=== PATIENT | female | born 1990 | race Caucasian/White ===

== ENCOUNTER 2017-08-23 02:08 | Inpatient (IN) ==
[2017-08-23] MEDS ORDERED: 0.9 % Sodium Chloride 1,000 ML IVC ONE (02:17)
[2017-08-23] MEDS ORDERED: Naloxone 0.4 MG/ML INJ IVP ONE (02:17)
--- NOTE | 2017-08-23 02:28 | Emergency Department Note ---
Disposition Clinical Impression: Generalized seizure Disposition: Still a Patient General Adult HPI - General Chief complaint: ED Seizure Stated complaint: seizure like activity Source: patient, EMS Limitations: no limitations - History of Present Illness Pain Scale: 0 - Related Data Previous Rx's Medication Instructions Recorded Azithromycin [Zithromax] 1 applic PO DAILY #6 tablet 06/06/15 Ondansetron [Zofran ODT] 8 mg SL TID PRN #12 tab.rapdis 06/06/15 Promethazine/Codeine 5 ml PO TID PRN #90 syrup 06/06/15 [Phenergan/Codeine] Ciprofloxacin [Cipro] 500 mg PO BID #20 tablet 02/05/16 Ondansetron HCl [Zofran] 4 mg PO Q8HR PRN #15 tablet 02/05/16 OxyCODONE/APAP 5/325 [Percocet 1 each PO Q8HR PRN #8 tablet 11/05/16 5/325 MG] Sulfamethoxazole/Trimeth DS 1 each PO BID 10 Days tablet 06/08/17 [Bactrim DS] Allergies Allergy/AdvReac Type Severity Reaction Status Date / Time No Known Allergies Allergy Verified 06/08/17 04:15 Past Medical History - Past Medical History Medical history: Reports: other Surgical history: Reports: no surgical history Psychiatric history: Reports: anxiety, bipolar, depression 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 I agree with the documented findings, disposition and treatment plan as described except to the extent set forth below. Patient seen with emergency medicine resident Marquis Bey, Please see a copy of his note for details of the H&P, ED evaluation, management and disposition. I have independently evaluated the patient and confirmed appropriate portions of the history and physical exam. Briefly: 26-year-old female by EMS for seizure-like activity. Patient's boyfriend is with her. 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 Be tonic-clonic action upon arrival here she is a bit sleepy does not appear to be postictal at this time no pupillary constriction. Patient could be getting some Narcan screening labs imaging and observation. Disposition pending. Time: 02:27 Vital Signs Temperature 98.4 F 08/23/17 02:10 Pulse Rate 82 08/23/17 02:10 Respiratory Rate 16 08/23/17 02:10 Blood Pressure 131/93 08/23/17 02:10 O2 Sat by Pulse Oximetry 98 08/23/17 02:10 Temperature 98.4 F 08/23/17 02:10 Pulse Rate 82 08/23/17 02:10 Respiratory Rate 16 08/23/17 02:10 Blood Pressure 131/93 08/23/17 02:10 O2 Sat by Pulse Oximetry 98 08/23/17 02:10 Oxygen Delivery Oxygen Delivery Room Air
[2017-08-23] MEDS ORDERED: Naloxone 0.4 MG/ML INJ ONE (02:39)
[2017-08-23] MEDS ORDERED: 0.9 % Sodium Chloride 1,000 ML ONE (02:39)
[2017-08-23 02:41] LABS: Bilirubin,Urine Negative (Negative); Blood,Urine Negative (Negative); Clarity,Urine Cloudy (Clear); Color,Urine Yellow (Yellow); Glucose,Urine (UA) Normal (Normal); Ketones,Urine Negative (Negative); Leukocyte Esterase,Urine Moderate (Negative); Nitrite,Urine Positive (Negative); PH,Urine 5.5 pH Units (5.0-8.0); Protein,Urine Negative (Neg-Trace); Specific Gravity,Urine 1.028 (1.010-1.025); Urobilinogen,Urine Normal (Normal)
[2017-08-23 02:43] LABS: Bacteria,Urine Many per hpf (None-Few); RBC,Urine 0-3 per hpf (0-3); Squamous Epithelial Cell,Urine Many per lpf (None-Few); WBC,Urine 50-100 per hpf (0-3)
[2017-08-23 02:57] LABS: Hyaline Casts,Urine None Seen per lpf (None-Few); Mucus,Urine Many (Few)
[2017-08-23 03:04] LABS: Amphetamine Screen,Urine Positive ng/mL (Cutoff=1000); Barbiturate Screen,Urine Negative ng/mL (Cutoff=200); Benzodiazepines Screen,Urine Negative ng/mL (Cutoff=200); Cannabinoid Screen,Urine Positive ng/mL (Cutoff = 50); Cocaine Screen,Urine Negative ng/mL (Cutoff= 300); Opiate Screen,Urine Positive ng/mL (Cutoff=300); Phencyclidine Screen,Urine Negative ng/mL (Cutoff=25)
--- NOTE | 2017-08-23 03:38 | Emergency Department Note ---
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 Altered mental state Qualifiers: Altered mental status type: unspecified Qualified Code(s): R41.82 - Altered mental status, unspecified Anemia Qualifiers: Anemia type: other cause Other causes of anemia: other cause, not classified Qualified Code(s): D64.89 - Other specified anemias Disposition: Still a Patient Condition: Fair Referrals: NONE,PCP [Primary Care Provider] - Forms: ED Satisfaction Letter Time of Disposition: 06:50 General Adult HPI - General Chief complaint: ED Seizure Stated complaint: seizure like activity Time Seen by Provider: 08/23/17 03:00 Source: patient, EMS Limitations: no limitations Nursing Notes Reviewed: Yes Vital Signs Reviewed: Yes - History of Present Illness HPI Narrative: 26-year-old female brought in minimally responsive by EMS, she had been apparently using heroin or Suboxone, the patient was initially very quiet and she apparently wakes up and looks around and does not sleep, we have her some Narcan, she has been more awake alert now and gives a history that she was using Suboxone, the patient denies chest pain or abdominal pain, she states that she is , she is a history of ITP. She denies vaginal bleeding or discharge although she did have some bleeding and discharge a few weeks ago. 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 Denies: chest pain, cough, diaphoresis - Related Data Previous Rx's Medication Instructions Recorded Azithromycin [Zithromax] 1 applic PO DAILY #6 tablet 06/06/15 Ondansetron [Zofran ODT] 8 mg SL TID PRN #12 tab.rapdis 06/06/15 Promethazine/Codeine 5 ml PO TID PRN #90 syrup 06/06/15 [Phenergan/Codeine] Ciprofloxacin [Cipro] 500 mg PO BID #20 tablet 02/05/16 Ondansetron HCl [Zofran] 4 mg PO Q8HR PRN #15 tablet 02/05/16 OxyCODONE/APAP 5/325 [Percocet 1 each PO Q8HR PRN #8 tablet 11/05/16 5/325 MG] Sulfamethoxazole/Trimeth DS 1 each PO BID 10 Days tablet 06/08/17 [Bactrim DS] Allergies Allergy/AdvReac Type Severity Reaction Status Date / Time No Known Allergies Allergy Verified 06/08/17 04:15 All systems ED: reviewed and negative except as stated. Review of Systems: As Per HPI Limitations: ROS unobtainable due to patients medical condition (initially ROS is difficult but patient awake after narcan) Constitutional: Denies: fever, chills Eyes: Denies: eye pain ENT ED: Denies: ear pain Cardiovascular: Denies: chest pain Respiratory: Reports: cough, dyspnea Gastrointestinal: Denies: abdominal pain, nausea Genitourinary: Denies: urgency, dysuria Musculoskeletal: Denies: back pain Integumentary: Denies: rash Neurological: Denies: headache Psychiatric: Denies: anxiety Past Medical History - Past Medical History Attestation: Yes The following information was validated with the patient. 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 - Social History Smoking Status: Current every day smoker Smokeless Tobacco Status: No Alcohol use: Reports: rarely Drug use: Reports: opiates, marijuana Physical Exam Constitutional: Somnolent and confused, Eyes: PERRLA, sclera anicteric ENT & Mouth: MM dry Neck: normal inspection, neck is supple Resp: CTA bilaterally, no resp distress CV: Tachycardia no m/g/r GI: normal inspection, soft, no guarding or rigidity Neuro: A&O2, renal nerves II through XII intact bilaterally patient seems confused, GCS is 14 for confusion Skin: on limited exam, skin intact with no rashes or lesions - General Limitations: no limitations General appearance: lethargic Course Course Narrative: Patient's a 26-year-old female with ulcerative thousand confusion, concern for Suboxone, was given some Narcan and did have some response alterable statics workup chest x-ray head CT the mother's concern for medically indicated and a very low dose. Patient is likely an early first trimester secondary to the story from the squad. We will reassess after evaluation. - Reevaluation(s) Reevaluation #1: So patient's head CT is negative, she is hemoglobin of 7.5 but she denies any rectal bleeding and refuses rectal exam, she also states that she has not had vaginal bleeding or spotting but did have some a few weeks ago and she was seen at [facility] a few months ago for ITP and anemia, and she is having either platelet counts or he will be counts as low as 7, but she still very confused and disoriented historian, her cousins at bedside and she is able to calm her down, prior to the hemoglobin, the patient was attempting to leave AGAINST MEDICAL ADVICE, I did have several conversations with the patient was able to get the patient to stay at inability to clot possible pelvic ultrasound to look for ectopic she is completely nontender still abdominal exam at this time, however there is still the concern, patient be admitted added type and screen as well. Time: 04:53 Reevaluation #2: Patient's care will be followed by Dr. Wesley and Dr. Mtz, for further evaluation she is expressed several times that she may not have capacity right now, she has woken up and been confused multiple times as well, and the redirection, Francis do not think that she understands medical illness, she is anemic with a high concern for possible underlying pathology, the patient refused rectal exam when she was coherent, but there is a concern that she could have a ruptured ectopic although her abdomen is nontender, waiting for ultrasound and admission. Time: 06:35 Vital Signs Temperature 98.4 F 08/23/17 02:10 Pulse Rate 82 08/23/17 02:10 Respiratory Rate 16 08/23/17 02:10 Blood Pressure 131/93 08/23/17 02:10 O2 Sat by Pulse Oximetry 98 08/23/17 02:10 Temperature 98.4 F 08/23/17 02:10 Pulse Rate 73 08/23/17 05:31 Respiratory Rate 16 08/23/17 05:31 Blood Pressure 99/63 08/23/17 05:31 O2 Sat by Pulse Oximetry 100 08/23/17 05:31 Oxygen Delivery Oxygen Delivery Room Air Medical Decision Making - Medical Records Medical records reviewed: Yes I reviewed the patient's medical records. - Lab Data Lab results reviewed: Yes I reviewed the patient's lab results. Result diagrams: 08/23/17 03:20 08/23/17 03:20 Lab Results 08/23/17 08/23/17 08/23/17 Range/Units 02:25 02:25 02:25 WBC (4.3-11.1) K/mcL RBC (3.82-4.97) M/mcL Hgb (11.5-15.4) g/dL Hct (35.3-44.9) % MCV (83.0-100.0) fL MCH (28.0-33.3) pg MCHC (31.6-35.5) g/dL RDW (11.5-14.5) % Plt Count (140-400) K/mcL MPV (9.4-12.4) fL Immature Gran % (0-4) % Seg Neutrophils % % Lymphocytes % % Monocytes % % Eosinophils % % Basophils % % Neutrophils # (1.6-8.9) K/mcL Lymphocytes # (0.6-4.6) K/mcL Monocytes # (0.0-1.3) K/mcL Eosinophils # (0.0-0.6) K/mcL Basophils # (0.0-0.2) K/mcL Platelet Estimate (Normal) Hypochromasia (Not Present) Anisocytosis (Not Present) Microcytosis (Not Present) Sodium (136-145) mEq/L Potassium (3.5-5.1) mEq/L Chloride (98-107) mEq/L Carbon Dioxide (23-29) mEq/L BUN (6-20) mg/dL Creatinine (0.60-1.20) mg/dL Est GFR ( Amer) (> 60) Est GFR (Non-Af Amer) (> 60) BUN/Creatinine Ratio (6-26) Glucose (70-105) mg/dL Calculated Osmolality (280-300) Calcium (8.6-10.3) mg/dL Total Bilirubin (0.3-1.0) mg/dL Direct Bilirubin (0.0-0.2) mg/dL Indirect Bilirubin (0.0-1.2) mg/dL AST (13-39) Units/L ALT (7-52) Units/L Alkaline Phosphatase (34-104) Units/L Creatine Kinase (30-223) Units/L Troponin I (< 0.04) ng/mL Serum Total Protein (6.4-8.9) g/dL Albumin (3.5-5.7) g/dL Globulin (2.4-3.5) g/dL Albumin/Globulin Ratio (1.1-2.2) TSH (0.340-5.600) mcIU/mL Beta HCG, Quant (Less than 5) mIU/mL Urine Color Yellow (Yellow) Urine Clarity Cloudy A (Clear) Urine pH 5.5 (5.0-8.0) pH Units Ur Specific [place] 1.028 H (1.010-1.025) Urine Protein Negative (Neg-Trace) mg/dL Urine Glucose (UA) Normal (Normal) mg/dL Urine Ketones Negative (Negative) mg/dL Urine Blood Negative (Negative) Urine Nitrite Positive A (Negative) Urine Bilirubin Negative (Negative) Urine Urobilinogen Normal (Normal) mg/dL Ur Leukocyte Esterase Moderate H (Negative) Urine Microscopic RBC 0-3 (0-3) per hpf Urine Microscopic WBC 50-100 H (0-3) per hpf Ur Squamous Epith Cells Many H (None-Few) per lpf Urine Bacteria Many H (None-Few) per hpf Hyaline Casts None Seen (None-Few) per lpf Urine Mucus Many H (Few) Ur Culture Indicated? NO. A (NO) Urine Test Positive A (Negative) Urine Opiates Screen Positive H (Ygnnnz=108) ng/mL Ur Barbiturates Screen Negative (Sjlpwp=103) ng/mL Ur Phencyclidine Scrn Negative (Cutoff=25) ng/mL Ur Amphetamines Screen Positive H (Kztliy=3379) ng/mL U Benzodiazepines Scrn Negative (Qjlfwx=495) ng/mL Urine Cocaine Screen Negative (Cutoff= 300) ng/mL U Marijuana (THC) Screen Positive H (Cutoff = 50) ng/mL Ethyl Alcohol (Less than 10) mg/dL Blood Type Antibody Screen 08/23/17 08/23/17 08/23/17 Range/Units 03:20 03:20 03:20 WBC 8.1 (4.3-11.1) K/mcL RBC 3.78 L (3.82-4.97) M/mcL Hgb 7.5 L (11.5-15.4) g/dL Hct 25.9 L (35.3-44.9) % MCV 68.5 L (83.0-100.0) fL MCH 19.8 L (28.0-33.3) pg MCHC 29.0 L (31.6-35.5) g/dL RDW 19.3 H (11.5-14.5) % Plt Count 331 (140-400) K/mcL MPV 9.6 (9.4-12.4) fL Immature Gran % 0.2 (0-4) % Seg Neutrophils % 56.0 % Lymphocytes % 36.2 % Monocytes % 6.3 % Eosinophils % 0.9 % Basophils % 0.4 % Neutrophils # 4.5 (1.6-8.9) K/mcL Lymphocytes # 2.9 (0.6-4.6) K/mcL Monocytes # 0.5 (0.0-1.3) K/mcL Eosinophils # 0.1 (0.0-0.6) K/mcL Basophils # 0.0 (0.0-0.2) K/mcL Platelet Estimate Normal (Normal) Hypochromasia Present A (Not Present) Anisocytosis 1+ A (Not Present) Microcytosis Present A (Not Present) Sodium 137 (136-145) mEq/L Potassium 3.5 (3.5-5.1) mEq/L Chloride 108 H (98-107) mEq/L Carbon Dioxide 23 (23-29) mEq/L BUN 13 (6-20) mg/dL Creatinine 0.74 (0.60-1.20) mg/dL Est GFR ( Amer) > 60 (> 60) Est GFR (Non-Af Amer) > 60 (> 60) BUN/Creatinine Ratio 18 (6-26) Glucose 97 (70-105) mg/dL Calculated Osmolality 284 (280-300) Calcium 8.7 (8.6-10.3) mg/dL Total Bilirubin 0.3 (0.3-1.0) mg/dL Direct Bilirubin 0.1 (0.0-0.2) mg/dL Indirect Bilirubin 0.2 (0.0-1.2) mg/dL AST 32 (13-39) Units/L ALT 37 (7-52) Units/L Alkaline Phosphatase 73 (34-104) Units/L Creatine Kinase 215 (30-223) Units/L Troponin I < 0.03 (< 0.04) ng/mL Serum Total Protein 7.1 (6.4-8.9) g/dL Albumin 4.0 (3.5-5.7) g/dL Globulin 3.1 (2.4-3.5) g/dL Albumin/Globulin Ratio 1.3 (1.1-2.2) TSH 2.210 (0.340-5.600) mcIU/mL Beta HCG, Quant 627 H (Less than 5) mIU/mL Urine Color (Yellow) Urine Clarity (Clear) Urine pH (5.0-8.0) pH Units Ur Specific [place] (1.010-1.025) Urine Protein (Neg-Trace) mg/dL Urine Glucose (UA) (Normal) mg/dL Urine Ketones (Negative) mg/dL Urine Blood (Negative) Urine Nitrite (Negative) Urine Bilirubin (Negative) Urine Urobilinogen (Normal) mg/dL Ur Leukocyte Esterase (Negative) Urine Microscopic RBC (0-3) per hpf Urine Microscopic WBC (0-3) per hpf Ur Squamous Epith Cells (None-Few) per lpf Urine Bacteria (None-Few) per hpf Hyaline Casts (None-Few) per lpf Urine Mucus (Few) Ur Culture Indicated? (NO) Urine Test (Negative) Urine Opiates Screen (Qhbbuw=494) ng/mL Ur Barbiturates Screen (Amnhju=752) ng/mL Ur Phencyclidine Scrn (Cutoff=25) ng/mL Ur Amphetamines Screen (Wqgwco=1133) ng/mL U Benzodiazepines Scrn ([place]=250) ng/mL Urine Cocaine Screen (Cutoff= 300) ng/mL U Marijuana (THC) Screen (Cutoff = 50) ng/mL Ethyl Alcohol < 10 (Less than 10) mg/dL Blood Type Antibody Screen 08/23/17 Range/Units 03:20 WBC (4.3-11.1) K/mcL RBC (3.82-4.97) M/mcL Hgb (11.5-15.4) g/dL Hct (35.3-44.9) % MCV (83.0-100.0) fL MCH (28.0-33.3) pg MCHC (31.6-35.5) g/dL RDW (11.5-14.5) % Plt Count (140-400) K/mcL MPV (9.4-12.4) fL Immature Gran % (0-4) % Seg Neutrophils % % Lymphocytes % % Monocytes % % Eosinophils % % Basophils % % Neutrophils # (1.6-8.9) K/mcL Lymphocytes # (0.6-4.6) K/mcL Monocytes # (0.0-1.3) K/mcL Eosinophils # (0.0-0.6) K/mcL Basophils # (0.0-0.2) K/mcL Platelet Estimate (Normal) Hypochromasia (Not Present) Anisocytosis (Not Present) Microcytosis (Not Present) Sodium (136-145) mEq/L Potassium (3.5-5.1) mEq/L Chloride (98-107) mEq/L Carbon Dioxide (23-29) mEq/L BUN (6-20) mg/dL Creatinine (0.60-1.20) mg/dL Est GFR ( Amer) (> 60) Est GFR (Non-Af Amer) (> 60) BUN/Creatinine Ratio (6-26) Glucose (70-105) mg/dL Calculated Osmolality (280-300) Calcium (8.6-10.3) mg/dL Total Bilirubin (0.3-1.0) mg/dL Direct Bilirubin (0.0-0.2) mg/dL Indirect Bilirubin (0.0-1.2) mg/dL AST (13-39) Units/L ALT (7-52) Units/L Alkaline Phosphatase (34-104) Units/L Creatine Kinase (30-223) Units/L Troponin I (< 0.04) ng/mL Serum Total Protein (6.4-8.9) g/dL Albumin (3.5-5.7) g/dL Globulin (2.4-3.5) g/dL Albumin/Globulin Ratio (1.1-2.2) TSH (0.340-5.600) mcIU/mL Beta HCG, Quant (Less than 5) mIU/mL Urine Color (Yellow) Urine Clarity (Clear) Urine pH (5.0-8.0) pH Units Ur Specific [place] (1.010-1.025) Urine Protein (Neg-Trace) mg/dL Urine Glucose (UA) (Normal) mg/dL Urine Ketones (Negative) mg/dL Urine Blood (Negative) Urine Nitrite (Negative) Urine Bilirubin (Negative) Urine Urobilinogen (Normal) mg/dL Ur Leukocyte Esterase (Negative) Urine Microscopic RBC (0-3) per hpf Urine Microscopic WBC (0-3) per hpf Ur Squamous Epith Cells (None-Few) per lpf Urine Bacteria (None-Few) per hpf Hyaline Casts (None-Few) per lpf Urine Mucus (Few) Ur Culture Indicated? (NO) Urine Test (Negative) Urine Opiates Screen (Gnlekt=748) ng/mL Ur Barbiturates Screen (Khwyci=736) ng/mL Ur Phencyclidine Scrn (Cutoff=25) ng/mL Ur Amphetamines Screen (Kadkhq=3580) ng/mL U Benzodiazepines Scrn (Zwsjfd=429) ng/mL Urine Cocaine Screen (Cutoff= 300) ng/mL U Marijuana (THC) Screen (Cutoff = 50) ng/mL Ethyl Alcohol (Less than 10) mg/dL Blood Type B POSITIVE Antibody Screen NEGATIVE - Radiology Data Radiology results reviewed: Yes I reviewed the patient's radiology results. Chest X-Ray 08/23/17 02:18 IMPRESSION: Negative portable chest. D/ / Kelby Adam MD / Kelby Adam MD Interpreting Provider: Kelby Adam MD Head CT 08/23/17 02:18 IMPRESSION: No acute intracranial abnormality. D/ / Stephen Astorga MD / Stephen Astorga MD Interpreting Provider: Stephen Astorga MD - EKG Data EKG #1 EKG attestation: Yes I reviewed and interpreted this EKG. EKG shows normal: sinus rhythm Rhythm: NSR [place]/QRS: normal (74 bpm [place] 177 QRS [address] segment elevations or depressions.) Voltage: increased voltage throughout Interpretation: no acute changes S.B.A.R. - S.B.A.R. Transition of Care: Pending ultrasound admission Situation: Demographics, MOA Background: Presenting Complaint, Relevant PMH, Meds, & Allergies Assessment: Vital Signs, Course and respsone to treatment, Exam Concerns, Patient/Family Expectation, Pertinant Lab Results, Outstanding Labs Recommendation: Barrier(s) to disposition, Recommendation based on pending studies, treatments, or consults S.B.A.R. Report Given to: Smith Shi Repor Time: 06:33
[2017-08-23 03:39] LABS: Basophils % 0.4 %; Eosinophils # 0.1 K/mcL (0.0-0.6); Eosinophils % 0.9 %; Hematocrit 25.9 % (35.3-44.9); Hemoglobin 7.5 g/dL (11.5-15.4); Immature Granulocytes % 0.2 % (0-4); Lymphocytes # 2.9 K/mcL (0.6-4.6); Lymphocytes % 36.2 %; Mean Corpuscular Hemoglobin 19.8 pg (28.0-33.3); Mean Corpuscular Volume 68.5 fL (83.0-100.0); Mean Platelet Volume 9.6 fL (9.4-12.4); Monocytes # 0.5 K/mcL (0.0-1.3); Monocytes % 6.3 %; Neutrophils # 4.5 K/mcL (1.6-8.9); Platelet Count 331 K/mcL (140-400); Red Blood Count 3.78 M/mcL (3.82-4.97); Red Cell Distribution Width 19.3 % (11.5-14.5)
[2017-08-23 04:01] LABS: Anisocytosis 1+ (Not Present); Hypochromasia Present (Not Present); Microcytosis Present (Not Present); Platelet Estimate Normal (Normal)
[2017-08-23 04:02] LABS: Alanine Aminotransferase 37 Units/L (7-52); Albumin/Globulin Ratio 1.3 (1.1-2.2); Alkaline Phosphatase 73 Units/L (34-104); Aspartate Amino Transferase 32 Units/L (13-39); BUN/Creatinine Ratio 18 (6-26); Bilirubin,Direct 0.1 mg/dL (0.0-0.2); Bilirubin,Indirect 0.2 mg/dL (0.0-1.2); Bilirubin,Total 0.3 mg/dL (0.3-1.0); Blood Urea Nitrogen 13 mg/dL (6-20); Calcium 8.7 mg/dL (8.6-10.3); Carbon Dioxide 23 mEq/L (23-29); Chloride 108 mEq/L (98-107); Ethanol < 10 mg/dL (Less than 10); Globulin 3.1 g/dL (2.4-3.5); Glucose 97 mg/dL (70-105); Osmolality,Calculated 284 (280-300); Potassium 3.5 mEq/L (3.5-5.1); Sodium 137 mEq/L (136-145); Total Protein 7.1 g/dL (6.4-8.9); Troponin I < 0.03 ng/mL (< 0.04); eGFR For African Americans > 60 (> 60); eGFR For Non-African Americans > 60 (> 60)
[2017-08-23] MEDS ORDERED: Nicotine 14 MG PATCH.TD24 TD STA (04:14)
[2017-08-23] MEDS ORDERED: *HR* LORazepam 2 MG/ML VIAL IVP ONE (04:23)
--- NOTE | 2017-08-23 06:24 | Electrocardiograph Report ---
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
[2017-08-23] MEDS ORDERED: cefTRIAXone 1,000 MG in Water for inj. (sterile) 20 ML 10 ML IVP ONE (07:48)
--- NOTE | 2017-08-23 08:00 | Emergency Department Note ---
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, Opiate abuse, continuous Altered mental state Qualifiers: Altered mental status type: unspecified Qualified Code(s): R41.82 - Altered mental status, unspecified Anemia Qualifiers: Anemia type: other cause Other causes of anemia: other cause, not classified Qualified Code(s): D64.89 - Other specified anemias Disposition: Admitted As Inpatient Condition: Undetermined Referrals: NONE,PCP [Primary Care Provider] - Forms: ED Satisfaction Letter Time of Disposition: 08:37 General Adult HPI - General Chief complaint: ED Seizure Stated complaint: seizure like activity Time Seen by Provider: 08/23/17 03:00 Source: patient, EMS Mode of arrival: EMS Limitations: altered mental status Nursing Notes Reviewed: Yes Vital Signs Reviewed: Yes - History of Present Illness HPI Narrative: The patient was signed out by the night team, Dr. Bey. In summary, this is a 26 year old female with history of multiple pregnancies, IVDU, and ITP. She arrives to the ED with concern for Altered mental status. The patient was reported to have used some sort of opiate prior to arrival. The patient arrives to the ED somnolent but was arousable. The patient was administered narcan which in turn woke the patient up slightly. She admitted to suboxone use. The patient had labs obtained at that time as she remained sleepy. The patient's labs noted anemia and when questioned the patient was noted to have previously been diagnosed with ITP at [facility]. The patient records from [facility] were obtained from visit around 07/03/17. Noted to be anemic at that time. The patient denies any complaints at this time. Ultrasound was ordered to observe for any abnormalities with the adnexa/. The patient has a soft abdomen and no complaints of vaginal bleeding or discharge. The patient refused an transvaginal US but is willing to obtain a transabdominal US. The patient remains somnolent but again, is easily arousable and protecting her airway. No complaints at this time. Location: head Pain Scale: 0 Improves with: nothing Worsens with: nothing Associated symptoms: Reports: confusion. Denies: chest pain, cough, diaphoresis - Related Data Previous Rx's Medication Instructions Recorded Azithromycin [Zithromax] 1 applic PO DAILY #6 tablet 06/06/15 Ondansetron [Zofran ODT] 8 mg SL TID PRN #12 tab.rapdis 06/06/15 Promethazine/Codeine 5 ml PO TID PRN #90 syrup 06/06/15 [Phenergan/Codeine] Ciprofloxacin [Cipro] 500 mg PO BID #20 tablet 02/05/16 Ondansetron HCl [Zofran] 4 mg PO Q8HR PRN #15 tablet 02/05/16 OxyCODONE/APAP 5/325 [Percocet 1 each PO Q8HR PRN #8 tablet 11/05/16 5/325 MG] Sulfamethoxazole/Trimeth DS 1 each PO BID 10 Days tablet 06/08/17 [Bactrim DS] Allergies Allergy/AdvReac Type Severity Reaction Status Date / Time No Known Allergies Allergy Verified 06/08/17 04:15 All systems ED: reviewed and negative except as stated. Constitutional: Denies: fever, chills Eyes: Denies: eye pain ENT ED: Denies: ear pain Cardiovascular: Denies: chest pain Respiratory: Reports: cough, dyspnea Gastrointestinal: Denies: abdominal pain, nausea Genitourinary: Denies: urgency, dysuria Musculoskeletal: Denies: back pain Integumentary: Denies: rash Neurological: Denies: headache Psychiatric: Denies: anxiety Past Medical History - Past Medical History Source: old records reviewed, nursing notes reviewed Medical history: Reports: other Surgical history: Reports: no surgical history Psychiatric history: Reports: anxiety, bipolar, depression HOSPITAL AIDE history: Reports: non-contributory LMP comments: - Social History Smoking Status: Current every day smoker Smokeless Tobacco Status: No Alcohol use: Reports: rarely Drug use: Reports: opiates, marijuana, methamphetamine Physical Exam - General Limitations: no limitations General appearance: lethargic - Head Head exam: atraumatic, normocephalic, normal inspection - Eye Eye exam: Present: PERRL, EOMI, miosis - ENT ENT exam: normal exam, normal oropharynx, mucous membranes moist - Neck Neck exam: Present: normal inspection, full ROM, trachea midline - Chest Chest inspection: Present: normal inspection, symmetric chest wall rise - Respiratory Respiratory exam: Present: normal lung sounds bilaterally - Cardiovascular Cardiovascular exam: Present: regular rate, normal rhythm, normal heart sounds - Abdominal Exam Abdominal exam: Present: soft, Non-Tender. Absent: tenderness, distention, guarding, rebound, rigidity, heel tap sign, Ovalle's sign, Rovsing's sign, tenderness at McBurney's Point - Extremities Exam Extremities exam: Present: normal inspection, full ROM. Absent: tenderness, pedal edema - Expanded Neurological Exam Patient oriented to: Present: person, place Speech: Present: fluid speech Cranial nerves: EOM function (II, III, IV, ): Normal, facial sensation (V): Normal, facial palsy (VII): Normal Coma Scale Eye Opening: To Voice Coma Scale Motor Response: Obeys Commands Coma Scale Verbal Response: Confused Coma Scale Total: 13 - Skin Skin exam: Present: warm, dry, intact, normal color, other (Patient has mild induration and forming abscess to right shoulder and right abdomen. No crepitus , lesions, other discoloration to sites. No drainable abscess noted at this time.) Course Vital Signs Temperature 98.4 F 08/23/17 02:10 Pulse Rate 82 08/23/17 02:10 Respiratory Rate 16 08/23/17 02:10 Blood Pressure 131/93 08/23/17 02:10 O2 Sat by Pulse Oximetry 98 08/23/17 02:10 Temperature 98.4 F 08/23/17 02:10 Pulse Rate 71 08/23/17 07:43 Respiratory Rate 18 08/23/17 07:43 Blood Pressure 100/77 08/23/17 07:43 O2 Sat by Pulse Oximetry 99 08/23/17 07:43 Oxygen Delivery Oxygen Delivery Room Air Medical Decision Making - [facility] Narrative Medical decision making narrative: Patient's ultrasound revealed a cystlike structure within the uterus likely early gestation . Given the patient's early gestation age without any overt obvious intrauterine noted on ultrasound, this will likely need to be repeated. The patient's abdominal exam is otherwise benign. Patient is otherwise well-appearing. The patient does have a couple non- drainable abscesses on the right shoulder and right abdomen. She was started on clindamycin. Urinary tract infection noted on urinalysis and was given a gram or Rocephin. The patient will be admitted to the hospital for observation and continued treatment. Patient was accepted by Dr. Keenan. - Lab Data Lab results reviewed: Yes I reviewed the patient's lab results. Result diagrams: 08/23/17 03:20 08/23/17 03:20 Lab Results 08/23/17 08/23/17 08/23/17 Range/Units 02:25 02:25 02:25 WBC (4.3-11.1) K/mcL RBC (3.82-4.97) M/mcL Hgb (11.5-15.4) g/dL Hct (35.3-44.9) % MCV (83.0-100.0) fL MCH (28.0-33.3) pg MCHC (31.6-35.5) g/dL RDW (11.5-14.5) % Plt Count (140-400) K/mcL MPV (9.4-12.4) fL Immature Gran % (0-4) % Seg Neutrophils % % Lymphocytes % % Monocytes % % Eosinophils % % Basophils % % Neutrophils # (1.6-8.9) K/mcL Lymphocytes # (0.6-4.6) K/mcL Monocytes # (0.0-1.3) K/mcL Eosinophils # (0.0-0.6) K/mcL Basophils # (0.0-0.2) K/mcL Platelet Estimate (Normal) Hypochromasia (Not Present) Anisocytosis (Not Present) Microcytosis (Not Present) Sodium (136-145) mEq/L Potassium (3.5-5.1) mEq/L Chloride (98-107) mEq/L Carbon Dioxide (23-29) mEq/L BUN (6-20) mg/dL Creatinine (0.60-1.20) mg/dL Est GFR ( Amer) (> 60) Est GFR (Non-Af Amer) (> 60) BUN/Creatinine Ratio (6-26) Glucose (70-105) mg/dL Calculated Osmolality (280-300) Calcium (8.6-10.3) mg/dL Total Bilirubin (0.3-1.0) mg/dL Direct Bilirubin (0.0-0.2) mg/dL Indirect Bilirubin (0.0-1.2) mg/dL AST (13-39) Units/L ALT (7-52) Units/L Alkaline Phosphatase (34-104) Units/L Creatine Kinase (30-223) Units/L Troponin I (< 0.04) ng/mL Serum Total Protein (6.4-8.9) g/dL Albumin (3.5-5.7) g/dL Globulin (2.4-3.5) g/dL Albumin/Globulin Ratio (1.1-2.2) TSH (0.340-5.600) mcIU/mL Beta HCG, Quant (Less than 5) mIU/mL Urine Color Yellow (Yellow) Urine Clarity Cloudy A (Clear) Urine pH 5.5 (5.0-8.0) pH Units Ur Specific Brooks 1.028 H (1.010-1.025) Urine Protein Negative (Neg-Trace) mg/dL Urine Glucose (UA) Normal (Normal) mg/dL Urine Ketones Negative (Negative) mg/dL Urine Blood Negative (Negative) Urine Nitrite Positive A (Negative) Urine Bilirubin Negative (Negative) Urine Urobilinogen Normal (Normal) mg/dL Ur Leukocyte Esterase Moderate H (Negative) Urine Microscopic RBC 0-3 (0-3) per hpf Urine Microscopic WBC 50-100 H (0-3) per hpf Ur Squamous Epith Cells Many H (None-Few) per lpf Urine Bacteria Many H (None-Few) per hpf Hyaline Casts None Seen (None-Few) per lpf Urine Mucus Many H (Few) Ur Culture Indicated? NO. A (NO) Urine Test Positive A (Negative) Urine Opiates Screen Positive H (Pabayb=122) ng/mL Ur Barbiturates Screen Negative (Bgtqei=291) ng/mL Ur Phencyclidine Scrn Negative (Cutoff=25) ng/mL Ur Amphetamines Screen Positive H (Zyyawr=3389) ng/mL U Benzodiazepines Scrn Negative (Rttrkv=159) ng/mL Urine Cocaine Screen Negative (Cutoff= 300) ng/mL U Marijuana (THC) Screen Positive H (Cutoff = 50) ng/mL Ethyl Alcohol (Less than 10) mg/dL Blood Type Antibody Screen 08/23/17 08/23/17 08/23/17 Range/Units 03:20 03:20 03:20 WBC 8.1 (4.3-11.1) K/mcL RBC 3.78 L (3.82-4.97) M/mcL Hgb 7.5 L (11.5-15.4) g/dL Hct 25.9 L (35.3-44.9) % MCV 68.5 L (83.0-100.0) fL MCH 19.8 L (28.0-33.3) pg MCHC 29.0 L (31.6-35.5) g/dL RDW 19.3 H (11.5-14.5) % Plt Count 331 (140-400) K/mcL MPV 9.6 (9.4-12.4) fL Immature Gran % 0.2 (0-4) % Seg Neutrophils % 56.0 % Lymphocytes % 36.2 % Monocytes % 6.3 % Eosinophils % 0.9 % Basophils % 0.4 % Neutrophils # 4.5 (1.6-8.9) K/mcL Lymphocytes # 2.9 (0.6-4.6) K/mcL Monocytes # 0.5 (0.0-1.3) K/mcL Eosinophils # 0.1 (0.0-0.6) K/mcL Basophils # 0.0 (0.0-0.2) K/mcL Platelet Estimate Normal (Normal) Hypochromasia Present A (Not Present) Anisocytosis 1+ A (Not Present) Microcytosis Present A (Not Present) Sodium 137 (136-145) mEq/L Potassium 3.5 (3.5-5.1) mEq/L Chloride 108 H (98-107) mEq/L Carbon Dioxide 23 (23-29) mEq/L BUN 13 (6-20) mg/dL Creatinine 0.74 (0.60-1.20) mg/dL Est GFR ( Amer) > 60 (> 60) Est GFR (Non-Af Amer) > 60 (> 60) BUN/Creatinine Ratio 18 (6-26) Glucose 97 (70-105) mg/dL Calculated Osmolality 284 (280-300) Calcium 8.7 (8.6-10.3) mg/dL Total Bilirubin 0.3 (0.3-1.0) mg/dL Direct Bilirubin 0.1 (0.0-0.2) mg/dL Indirect Bilirubin 0.2 (0.0-1.2) mg/dL AST 32 (13-39) Units/L ALT 37 (7-52) Units/L Alkaline Phosphatase 73 (34-104) Units/L Creatine Kinase 215 (30-223) Units/L Troponin I < 0.03 (< 0.04) ng/mL Serum Total Protein 7.1 (6.4-8.9) g/dL Albumin 4.0 (3.5-5.7) g/dL Globulin 3.1 (2.4-3.5) g/dL Albumin/Globulin Ratio 1.3 (1.1-2.2) TSH 2.210 (0.340-5.600) mcIU/mL Beta HCG, Quant 627 H (Less than 5) mIU/mL Urine Color (Yellow) Urine Clarity (Clear) Urine pH (5.0-8.0) pH Units Ur Specific Brooks (1.010-1.025) Urine Protein (Neg-Trace) mg/dL Urine Glucose (UA) (Normal) mg/dL Urine Ketones (Negative) mg/dL Urine Blood (Negative) Urine Nitrite (Negative) Urine Bilirubin (Negative) Urine Urobilinogen (Normal) mg/dL Ur Leukocyte Esterase (Negative) Urine Microscopic RBC (0-3) per hpf Urine Microscopic WBC (0-3) per hpf Ur Squamous Epith Cells (None-Few) per lpf Urine Bacteria (None-Few) per hpf Hyaline Casts (None-Few) per lpf Urine Mucus (Few) Ur Culture Indicated? (NO) Urine Test (Negative) Urine Opiates Screen (Qyjzne=886) ng/mL Ur Barbiturates Screen (Xzmlfm=090) ng/mL Ur Phencyclidine Scrn (Cutoff=25) ng/mL Ur Amphetamines Screen (Igzshq=6980) ng/mL U Benzodiazepines Scrn (Rdikrk=349) ng/mL Urine Cocaine Screen (Cutoff= 300) ng/mL U Marijuana (THC) Screen (Cutoff = 50) ng/mL Ethyl Alcohol < 10 (Less than 10) mg/dL Blood Type Antibody Screen 08/23/17 Range/Units 03:20 WBC (4.3-11.1) K/mcL RBC (3.82-4.97) M/mcL Hgb (11.5-15.4) g/dL Hct (35.3-44.9) % MCV (83.0-100.0) fL MCH (28.0-33.3) pg MCHC (31.6-35.5) g/dL RDW (11.5-14.5) % Plt Count (140-400) K/mcL MPV (9.4-12.4) fL Immature Gran % (0-4) % Seg Neutrophils % % Lymphocytes % % Monocytes % % Eosinophils % % Basophils % % Neutrophils # (1.6-8.9) K/mcL Lymphocytes # (0.6-4.6) K/mcL Monocytes # (0.0-1.3) K/mcL Eosinophils # (0.0-0.6) K/mcL Basophils # (0.0-0.2) K/mcL Platelet Estimate (Normal) Hypochromasia (Not Present) Anisocytosis (Not Present) Microcytosis (Not Present) Sodium (136-145) mEq/L Potassium (3.5-5.1) mEq/L Chloride (98-107) mEq/L Carbon Dioxide (23-29) mEq/L BUN (6-20) mg/dL Creatinine (0.60-1.20) mg/dL Est GFR ( Amer) (> 60) Est GFR (Non-Af Amer) (> 60) BUN/Creatinine Ratio (6-26) Glucose (70-105) mg/dL Calculated Osmolality (280-300) Calcium (8.6-10.3) mg/dL Total Bilirubin (0.3-1.0) mg/dL Direct Bilirubin (0.0-0.2) mg/dL Indirect Bilirubin (0.0-1.2) mg/dL AST (13-39) Units/L ALT (7-52) Units/L Alkaline Phosphatase (34-104) Units/L Creatine Kinase (30-223) Units/L Troponin I (< 0.04) ng/mL Serum Total Protein (6.4-8.9) g/dL Albumin (3.5-5.7) g/dL Globulin (2.4-3.5) g/dL Albumin/Globulin Ratio (1.1-2.2) TSH (0.340-5.600) mcIU/mL Beta HCG, Quant (Less than 5) mIU/mL Urine Color (Yellow) Urine Clarity (Clear) Urine pH (5.0-8.0) pH Units Ur Specific Brooks (1.010-1.025) Urine Protein (Neg-Trace) mg/dL Urine Glucose (UA) (Normal) mg/dL Urine Ketones (Negative) mg/dL Urine Blood (Negative) Urine Nitrite (Negative) Urine Bilirubin (Negative) Urine Urobilinogen (Normal) mg/dL Ur Leukocyte Esterase (Negative) Urine Microscopic RBC (0-3) per hpf Urine Microscopic WBC (0-3) per hpf Ur Squamous Epith Cells (None-Few) per lpf Urine Bacteria (None-Few) per hpf Hyaline Casts (None-Few) per lpf Urine Mucus (Few) Ur Culture Indicated? (NO) Urine Test (Negative) Urine Opiates Screen (Tldilc=013) ng/mL Ur Barbiturates Screen (Swcvag=584) ng/mL Ur Phencyclidine Scrn (Cutoff=25) ng/mL Ur Amphetamines Screen (Yzgcsu=1557) ng/mL U Benzodiazepines Scrn (Ujntud=538) ng/mL Urine Cocaine Screen (Cutoff= 300) ng/mL U Marijuana (THC) Screen (Cutoff = 50) ng/mL Ethyl Alcohol (Less than 10) mg/dL Blood Type B POSITIVE Antibody Screen NEGATIVE - Radiology Data Radiology results reviewed: Yes I reviewed the patient's radiology results. Chest X-Ray 08/23/17 02:18 IMPRESSION: Negative portable chest. D/ / Kelby Adam MD / Kelby Adam MD Interpreting Provider: Kelby Adam MD Head CT 08/23/17 02:18 IMPRESSION: No acute intracranial abnormality. D/ / Stephen Astorga MD / Stephen Astorga MD Interpreting Provider: Stephen Astorga MD Obstetrics Ultrasound 08/23/17 05:23 IMPRESSION: 1. Small cystic structure in the uterus, which may be an early gestational sac. No yolk sac or pole is present at this time to confirm an intrauterine , and therefore, an ectopic or missed cannot be excluded. Continued beta HCG and pelvic ultrasound follow-up is recommended. 2. Masslike lesion in the urinary bladder, which measures up to 4.1 cm. Given the patient's age, this is likely secondary to debris or blood within the bladder. However, malignancy cannot be excluded. Either a repeat bladder ultrasound, or further evaluation with cystoscopy is recommended. D/ / Anupam Felder MD / Anupam Felder MD Interpreting Provider: Anupam Felder MD
--- NOTE | 2017-08-23 08:29 | Emergency Department Note ---
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, Opiate abuse, continuous Altered mental state Qualifiers: Altered mental status type: unspecified Qualified Code(s): R41.82 - Altered mental status, unspecified Anemia Qualifiers: Anemia type: other cause Other causes of anemia: other cause, not classified Qualified Code(s): D64.89 - Other specified anemias Disposition: Admitted As Inpatient Condition: Undetermined Referrals: NONE,PCP [Primary Care Provider] - Forms: ED Satisfaction Letter General Adult HPI - General Chief complaint: ED Seizure Stated complaint: seizure like activity Time Seen by Provider: 08/23/17 03:00 Source: patient, EMS Mode of arrival: EMS Limitations: no limitations - History of Present Illness Location: head Pain Scale: 0 Improves with: nothing Worsens with: nothing Associated symptoms: Reports: confusion. Denies: chest pain, cough, diaphoresis - Related Data Previous Rx's Medication Instructions Recorded Azithromycin [Zithromax] 1 applic PO DAILY #6 tablet 06/06/15 Ondansetron [Zofran ODT] 8 mg SL TID PRN #12 tab.rapdis 06/06/15 Promethazine/Codeine 5 ml PO TID PRN #90 syrup 06/06/15 [Phenergan/Codeine] Ciprofloxacin [Cipro] 500 mg PO BID #20 tablet 02/05/16 Ondansetron HCl [Zofran] 4 mg PO Q8HR PRN #15 tablet 02/05/16 OxyCODONE/APAP 5/325 [Percocet 1 each PO Q8HR PRN #8 tablet 11/05/16 5/325 MG] Sulfamethoxazole/Trimeth DS 1 each PO BID 10 Days tablet 06/08/17 [Bactrim DS] Allergies Allergy/AdvReac Type Severity Reaction Status Date / Time No Known Allergies Allergy Verified 06/08/17 04:15 Constitutional: Denies: fever, chills Eyes: Denies: eye pain ENT ED: Denies: ear pain Cardiovascular: Denies: chest pain Respiratory: Reports: cough, dyspnea Gastrointestinal: Denies: abdominal pain, nausea Genitourinary: Denies: urgency, dysuria Musculoskeletal: Denies: back pain Integumentary: Denies: rash Neurological: Denies: headache Psychiatric: Denies: anxiety Past Medical History - Past Medical History Medical history: Reports: other Surgical history: Reports: no surgical history Psychiatric history: Reports: anxiety, bipolar, depression PAYMENT REP history: Reports: non-contributory - Social History Smoking Status: Current every day smoker Smokeless Tobacco Status: No Alcohol use: Reports: rarely Drug use: Reports: opiates, marijuana, methamphetamine Physical Exam - General Limitations: no limitations General appearance: lethargic Course Vital Signs Temperature 98.4 F 08/23/17 02:10 Pulse Rate 82 08/23/17 02:10 Respiratory Rate 16 08/23/17 02:10 Blood Pressure 131/93 08/23/17 02:10 O2 Sat by Pulse Oximetry 98 08/23/17 02:10 Temperature 98.4 F 08/23/17 02:10 Pulse Rate 71 08/23/17 07:43 Respiratory Rate 18 08/23/17 07:43 Blood Pressure 100/77 08/23/17 07:43 O2 Sat by Pulse Oximetry 99 08/23/17 07:43 Oxygen Delivery Oxygen Delivery Room Air Medical Decision Making - Lab Data Result diagrams: 08/23/17 03:20 08/23/17 03:20 Lab Results 08/23/17 08/23/17 08/23/17 Range/Units 02:25 02:25 02:25 WBC (4.3-11.1) K/mcL RBC (3.82-4.97) M/mcL Hgb (11.5-15.4) g/dL Hct (35.3-44.9) % MCV (83.0-100.0) fL MCH (28.0-33.3) pg MCHC (31.6-35.5) g/dL RDW (11.5-14.5) % Plt Count (140-400) K/mcL MPV (9.4-12.4) fL Immature Gran % (0-4) % Seg Neutrophils % % Lymphocytes % % Monocytes % % Eosinophils % % Basophils % % Neutrophils # (1.6-8.9) K/mcL Lymphocytes # (0.6-4.6) K/mcL Monocytes # (0.0-1.3) K/mcL Eosinophils # (0.0-0.6) K/mcL Basophils # (0.0-0.2) K/mcL Platelet Estimate (Normal) Hypochromasia (Not Present) Anisocytosis (Not Present) Microcytosis (Not Present) Sodium (136-145) mEq/L Potassium (3.5-5.1) mEq/L Chloride (98-107) mEq/L Carbon Dioxide (23-29) mEq/L BUN (6-20) mg/dL Creatinine (0.60-1.20) mg/dL Est GFR ( Amer) (> 60) Est GFR (Non-Af Amer) (> 60) BUN/Creatinine Ratio (6-26) Glucose (70-105) mg/dL Calculated Osmolality (280-300) Calcium (8.6-10.3) mg/dL Total Bilirubin (0.3-1.0) mg/dL Direct Bilirubin (0.0-0.2) mg/dL Indirect Bilirubin (0.0-1.2) mg/dL AST (13-39) Units/L ALT (7-52) Units/L Alkaline Phosphatase (34-104) Units/L Creatine Kinase (30-223) Units/L Troponin I (< 0.04) ng/mL Serum Total Protein (6.4-8.9) g/dL Albumin (3.5-5.7) g/dL Globulin (2.4-3.5) g/dL Albumin/Globulin Ratio (1.1-2.2) TSH (0.340-5.600) mcIU/mL Beta HCG, Quant (Less than 5) mIU/mL Urine Color Yellow (Yellow) Urine Clarity Cloudy A (Clear) Urine pH 5.5 (5.0-8.0) pH Units Ur Specific Oden 1.028 H (1.010-1.025) Urine Protein Negative (Neg-Trace) mg/dL Urine Glucose (UA) Normal (Normal) mg/dL Urine Ketones Negative (Negative) mg/dL Urine Blood Negative (Negative) Urine Nitrite Positive A (Negative) Urine Bilirubin Negative (Negative) Urine Urobilinogen Normal (Normal) mg/dL Ur Leukocyte Esterase Moderate H (Negative) Urine Microscopic RBC 0-3 (0-3) per hpf Urine Microscopic WBC 50-100 H (0-3) per hpf Ur Squamous Epith Cells Many H (None-Few) per lpf Urine Bacteria Many H (None-Few) per hpf Hyaline Casts None Seen (None-Few) per lpf Urine Mucus Many H (Few) Ur Culture Indicated? NO. A (NO) Urine Test Positive A (Negative) Urine Opiates Screen Positive H (Hcsvel=977) ng/mL Ur Barbiturates Screen Negative (Tdezib=756) ng/mL Ur Phencyclidine Scrn Negative (Cutoff=25) ng/mL Ur Amphetamines Screen Positive H (Qjyofo=3029) ng/mL U Benzodiazepines Scrn Negative (Dsdecn=613) ng/mL Urine Cocaine Screen Negative (Cutoff= 300) ng/mL U Marijuana (THC) Screen Positive H (Cutoff = 50) ng/mL Ethyl Alcohol (Less than 10) mg/dL Blood Type Antibody Screen 08/23/17 08/23/17 08/23/17 Range/Units 03:20 03:20 03:20 WBC 8.1 (4.3-11.1) K/mcL RBC 3.78 L (3.82-4.97) M/mcL Hgb 7.5 L (11.5-15.4) g/dL Hct 25.9 L (35.3-44.9) % MCV 68.5 L (83.0-100.0) fL MCH 19.8 L (28.0-33.3) pg MCHC 29.0 L (31.6-35.5) g/dL RDW 19.3 H (11.5-14.5) % Plt Count 331 (140-400) K/mcL MPV 9.6 (9.4-12.4) fL Immature Gran % 0.2 (0-4) % Seg Neutrophils % 56.0 % Lymphocytes % 36.2 % Monocytes % 6.3 % Eosinophils % 0.9 % Basophils % 0.4 % Neutrophils # 4.5 (1.6-8.9) K/mcL Lymphocytes # 2.9 (0.6-4.6) K/mcL Monocytes # 0.5 (0.0-1.3) K/mcL Eosinophils # 0.1 (0.0-0.6) K/mcL Basophils # 0.0 (0.0-0.2) K/mcL Platelet Estimate Normal (Normal) Hypochromasia Present A (Not Present) Anisocytosis 1+ A (Not Present) Microcytosis Present A (Not Present) Sodium 137 (136-145) mEq/L Potassium 3.5 (3.5-5.1) mEq/L Chloride 108 H (98-107) mEq/L Carbon Dioxide 23 (23-29) mEq/L BUN 13 (6-20) mg/dL Creatinine 0.74 (0.60-1.20) mg/dL Est GFR ( Amer) > 60 (> 60) Est GFR (Non-Af Amer) > 60 (> 60) BUN/Creatinine Ratio 18 (6-26) Glucose 97 (70-105) mg/dL Calculated Osmolality 284 (280-300) Calcium 8.7 (8.6-10.3) mg/dL Total Bilirubin 0.3 (0.3-1.0) mg/dL Direct Bilirubin 0.1 (0.0-0.2) mg/dL Indirect Bilirubin 0.2 (0.0-1.2) mg/dL AST 32 (13-39) Units/L ALT 37 (7-52) Units/L Alkaline Phosphatase 73 (34-104) Units/L Creatine Kinase 215 (30-223) Units/L Troponin I < 0.03 (< 0.04) ng/mL Serum Total Protein 7.1 (6.4-8.9) g/dL Albumin 4.0 (3.5-5.7) g/dL Globulin 3.1 (2.4-3.5) g/dL Albumin/Globulin Ratio 1.3 (1.1-2.2) TSH 2.210 (0.340-5.600) mcIU/mL Beta HCG, Quant 627 H (Less than 5) mIU/mL Urine Color (Yellow) Urine Clarity (Clear) Urine pH (5.0-8.0) pH Units Ur Specific Oden (1.010-1.025) Urine Protein (Neg-Trace) mg/dL Urine Glucose (UA) (Normal) mg/dL Urine Ketones (Negative) mg/dL Urine Blood (Negative) Urine Nitrite (Negative) Urine Bilirubin (Negative) Urine Urobilinogen (Normal) mg/dL Ur Leukocyte Esterase (Negative) Urine Microscopic RBC (0-3) per hpf Urine Microscopic WBC (0-3) per hpf Ur Squamous Epith Cells (None-Few) per lpf Urine Bacteria (None-Few) per hpf Hyaline Casts (None-Few) per lpf Urine Mucus (Few) Ur Culture Indicated? (NO) Urine Test (Negative) Urine Opiates Screen (Pfvejm=529) ng/mL Ur Barbiturates Screen (Ggqkpb=615) ng/mL Ur Phencyclidine Scrn (Cutoff=25) ng/mL Ur Amphetamines Screen (Rqeemg=2006) ng/mL U Benzodiazepines Scrn (Tzzcao=528) ng/mL Urine Cocaine Screen (Cutoff= 300) ng/mL U Marijuana (THC) Screen (Cutoff = 50) ng/mL Ethyl Alcohol < 10 (Less than 10) mg/dL Blood Type Antibody Screen 08/23/17 Range/Units 03:20 WBC (4.3-11.1) K/mcL RBC (3.82-4.97) M/mcL Hgb (11.5-15.4) g/dL Hct (35.3-44.9) % MCV (83.0-100.0) fL MCH (28.0-33.3) pg MCHC (31.6-35.5) g/dL RDW (11.5-14.5) % Plt Count (140-400) K/mcL MPV (9.4-12.4) fL Immature Gran % (0-4) % Seg Neutrophils % % Lymphocytes % % Monocytes % % Eosinophils % % Basophils % % Neutrophils # (1.6-8.9) K/mcL Lymphocytes # (0.6-4.6) K/mcL Monocytes # (0.0-1.3) K/mcL Eosinophils # (0.0-0.6) K/mcL Basophils # (0.0-0.2) K/mcL Platelet Estimate (Normal) Hypochromasia (Not Present) Anisocytosis (Not Present) Microcytosis (Not Present) Sodium (136-145) mEq/L Potassium (3.5-5.1) mEq/L Chloride (98-107) mEq/L Carbon Dioxide (23-29) mEq/L BUN (6-20) mg/dL Creatinine (0.60-1.20) mg/dL Est GFR ( Amer) (> 60) Est GFR (Non-Af Amer) (> 60) BUN/Creatinine Ratio (6-26) Glucose (70-105) mg/dL Calculated Osmolality (280-300) Calcium (8.6-10.3) mg/dL Total Bilirubin (0.3-1.0) mg/dL Direct Bilirubin (0.0-0.2) mg/dL Indirect Bilirubin (0.0-1.2) mg/dL AST (13-39) Units/L ALT (7-52) Units/L Alkaline Phosphatase (34-104) Units/L Creatine Kinase (30-223) Units/L Troponin I (< 0.04) ng/mL Serum Total Protein (6.4-8.9) g/dL Albumin (3.5-5.7) g/dL Globulin (2.4-3.5) g/dL Albumin/Globulin Ratio (1.1-2.2) TSH (0.340-5.600) mcIU/mL Beta HCG, Quant (Less than 5) mIU/mL Urine Color (Yellow) Urine Clarity (Clear) Urine pH (5.0-8.0) pH Units Ur Specific Oden (1.010-1.025) Urine Protein (Neg-Trace) mg/dL Urine Glucose (UA) (Normal) mg/dL Urine Ketones (Negative) mg/dL Urine Blood (Negative) Urine Nitrite (Negative) Urine Bilirubin (Negative) Urine Urobilinogen (Normal) mg/dL Ur Leukocyte Esterase (Negative) Urine Microscopic RBC (0-3) per hpf Urine Microscopic WBC (0-3) per hpf Ur Squamous Epith Cells (None-Few) per lpf Urine Bacteria (None-Few) per hpf Hyaline Casts (None-Few) per lpf Urine Mucus (Few) Ur Culture Indicated? (NO) Urine Test (Negative) Urine Opiates Screen (Jwvhue=191) ng/mL Ur Barbiturates Screen (Azucya=436) ng/mL Ur Phencyclidine Scrn (Cutoff=25) ng/mL Ur Amphetamines Screen (Opwgjt=0403) ng/mL U Benzodiazepines Scrn (Rbcqif=506) ng/mL Urine Cocaine Screen (Cutoff= 300) ng/mL U Marijuana (THC) Screen (Cutoff = 50) ng/mL Ethyl Alcohol (Less than 10) mg/dL Blood Type B POSITIVE Antibody Screen NEGATIVE Attestation Statement - Attestation Attestation: I examined this patient and my medical decision-making was reviewed with the VETER[employer]' COORDINATOR/PA/Advanced Practice Nurse/Resident Physician. I agree with the documented findings, disposition and treatment plan as described except to the extent set forth below. Patient is and we are waiting results of ultrasound. The patient is altered and sleepy however she is arousable and does seem to give a decent history when aroused however does easily fall back asleep. She had received Narcan already. She does have a small ulcerated area right groin without surrounding erythema and minimal discomfort palpation and also a likely infected area left posterior shoulder but no crepitus or necrosis or fluctuance or ecchymosis. Patient did receive Rocephin for urinary tract infection and she does have a history of heroin use but denies any skin popping. Neither areas are ready to drain at this time. [id number]
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
[2017-08-23] MEDS ORDERED: Naloxone 0.4 MG/ML INJ IVP PRN (14:53)
[2017-08-23] MEDS ORDERED: Ringers Solution, Lactated 1,000 ML IVC SCH (15:00)
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
[2017-08-23] MEDS ORDERED: Doxycycline 100 MG in 0.9 % Sodium Chloride Mini Bag 100 ML IVPB SCH (18:00)
[2017-08-23] MEDS: 0.9 % Sodium Chloride 1,000 ML IVC SCH (19:53)
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
[2017-08-23] MEDS: Acetaminophen 325 MG TABLET PO PRN (23:31)
[2017-08-24] MEDS ORDERED: Acetaminophen 325 MG TABLET PO SCH
[2017-08-24] MEDS ORDERED: *HR* Enoxaparin 40 MG/0.4 ML SYRINGE SQ SCH (06:00)
[2017-08-24] MEDS: 0.9 % Sodium Chloride 1,000 ML IVC SCH (06:50)
[2017-08-24 08:20] LABS: Immature Granulocytes % 0.2 % (0-4)
[2017-08-24 08:21] LABS: Basophils % 0.2 %; Eosinophils # 0.1 K/mcL (0.0-0.6); Eosinophils % 1.8 %; Hematocrit 29.8 % (35.3-44.9); Hemoglobin 8.6 g/dL (11.5-15.4); Lymphocytes % 37.9 %; Mean Corpuscular HGB Conc 28.9 g/dL (31.6-35.5); Mean Corpuscular Hemoglobin 19.8 pg (28.0-33.3); Mean Corpuscular Volume 68.7 fL (83.0-100.0); Mean Platelet Volume 9.4 fL (9.4-12.4); Monocytes # 0.4 K/mcL (0.0-1.3); Monocytes % 7.4 %; Neutrophils # 2.7 K/mcL (1.6-8.9); Platelet Count 331 K/mcL (140-400); Red Blood Count 4.34 M/mcL (3.82-4.97); Red Cell Distribution Width 19.3 % (11.5-14.5); Segmented Neutrophils % 52.5 %
[2017-08-24 08:31] LABS: Lymphocytes # 1.9 K/mcL (0.6-4.6)
[2017-08-24 08:36] LABS: BUN/Creatinine Ratio 8 (6-26); Blood Urea Nitrogen 5 mg/dL (6-20); Calcium 8.8 mg/dL (8.6-10.3); Carbon Dioxide 22 mEq/L (23-29); Chloride 106 mEq/L (98-107); Glucose 91 mg/dL (70-105); Osmolality,Calculated 279 (280-300); Potassium 3.4 mEq/L (3.5-5.1); Sodium 136 mEq/L (136-145); eGFR For African Americans > 60 (> 60); eGFR For Non-African Americans > 60 (> 60)
[2017-08-24 08:38] LABS: % Iron Saturation 3 % (15-50); Iron 16 mcg/dL (50-170); Transferrin 382 mg/dL (203-362)
[2017-08-24 08:44] LABS: Anisocytosis 1+ (Not Present); Hypochromasia Present (Not Present); Platelet Estimate Normal (Normal)
[2017-08-24 08:45] LABS: Microcytosis Present (Not Present)
[2017-08-24] MEDS ORDERED: Nicotine 14 MG PATCH.TD24 TD SCH (09:00)
[2017-08-24] MEDS ORDERED: cefTRIAXone 2,000 MG in Water for inj. (sterile) 20 ML 20 ML IVP SCH (09:00)
[2017-08-24] MEDS ORDERED: Prenatal Vit/FA 1 EACH TABLET PO SCH (09:00)
[2017-08-24 09:02] LABS: Ferritin < 8 ng/mL (10-120); Folate 11.5 ng/mL (3.0-16.0)
--- NOTE | 2017-08-24 11:25 | General Surgery Progress Note ---
Date of Encounter: 08/24/17 Time of Encounter: 11:24 - Assessment and Plan (1) Boil Current Visit: Yes Status: Acute 26F with multiple boils/furuncle; likely from scratching; no active draining; abx per primary team no surgery general surgery will sign off; please call with any new questions or concerns Subjective Patient reports: no new complaints Objective Vital Signs - Last 8 Hours Temp Pulse Resp BP Pulse Ox 08/24/17 07:35 99.4 F 75 16 105/70 99 08/24/17 03:39 97.7 F 78 14 115/79 100 Intake and Output 08/23/17 08/24/17 08/24/17 23:59 07:59 15:59 Intake Total 1000 / 1000 360 / 360 Output Total 0 / 0 0 / 0 Balance 0 / 0 1000 / 1000 360 / 360 Intake: IV Fluids 1000 / 1000 0.9 % Sodium Chloride 1,000 ML 1000 / 1000 @ 100 mls/hr IVC .Q10H ADRYAN Rx#: [id number] Oral 360 / 360 Output: Urine 0 / 0 0 / 0 Other: Meal snack Breakfast Percent of Meal Consumed 100% 100% # Voids 1 1 Weight 68.5 kg Patient Weight 08/24/17 23:59 Weight 68.5 kg - General physical appearance no distress - Respiratory normal expansion, normal respiratory effort - Cardiovascular Cardiovascular exam: Present: RRR - Integumentary other (erythema along left shoulder lesion; no obvious drainage; likely small abscess; ) - Neurologic CN 2-12 grossly intact - Musculoskeletal normal posture - Labs 08/24/17 08:03 08/24/17 08:03 Diabetes panel 08/24/17 Range/Units 08:03 Sodium 136 (136-145) mEq/L Potassium 3.4 L (3.5-5.1) mEq/L Chloride 106 (98-107) mEq/L Carbon Dioxide 22 L (23-29) mEq/L BUN 5 L (6-20) mg/dL Creatinine 0.66 (0.60-1.20) mg/dL Glucose 91 (70-105) mg/dL Calcium 8.8 (8.6-10.3) mg/dL Calcium panel 08/24/17 Range/Units 08:03 Calcium 8.8 (8.6-10.3) mg/dL Pituitary panel 08/24/17 Range/Units 08:03 Sodium 136 (136-145) mEq/L Potassium 3.4 L (3.5-5.1) mEq/L Chloride 106 (98-107) mEq/L Carbon Dioxide 22 L (23-29) mEq/L BUN 5 L (6-20) mg/dL Creatinine 0.66 (0.60-1.20) mg/dL Glucose 91 (70-105) mg/dL Calcium 8.8 (8.6-10.3) mg/dL Adrenal panel 08/24/17 Range/Units 08:03 Sodium 136 (136-145) mEq/L Potassium 3.4 L (3.5-5.1) mEq/L Chloride 106 (98-107) mEq/L Carbon Dioxide 22 L (23-29) mEq/L BUN 5 L (6-20) mg/dL Creatinine 0.66 (0.60-1.20) mg/dL Glucose 91 (70-105) mg/dL Calcium 8.8 (8.6-10.3) mg/dL Consult Discharge Plan - Plan Referrals: NONE,PCP [Primary Care Provider] -
--- NOTE | 2017-08-24 15:31 | Internal Med Progress Note ---
Date of Encounter: 08/24/17 Time of Encounter: 15:37 - Assessment and plan (1) Polysubstance abuse Current Visit: Yes Status: Acute Assessment and plan: Presented to ER be in a mess after being found unresponsive. Received Narcan in the field and in the ED. UDS positive for opiates, amphetamines and marijuana. Cessation advised. Continue one-to-one sitter. Psych consult (2) Boil Current Visit: Yes Status: Acute Assessment and plan: To left shoulder. No active drainage. Evaluated by Gen. surgery who noted no surgical intervention required at this time. Continue Rocephin. (3) Non-viable Current Visit: Yes Status: Acute Assessment and plan: Transabdominal and transvaginal ultrasound unable to confirm intrauterine . An ectopic or missed could not be excluded. Continue beta hCG monitoring. Evaluated by OB recommended pelvic ultrasound within 1-2 weeks. (4) Anemia Current Visit: Yes Status: Acute Assessment and plan: Follows with [facility] but details unclear. Patient reports being treated for anemia/ ITP at [facility]. She does not provide details and is refusing to allow staff to obtain [facility] records. Hgb stable; 8.6. No active bleeding. Intermittently monitor. Qualifiers: Anemia type: iron deficiency Iron deficiency anemia type: inadequate dietary iron intake Qualified Code(s): D50.8 - Other iron deficiency anemias (5) Encephalopathy Current Visit: Yes Status: Acute Assessment and plan: likely related to drugs. Now resolved. (6) UTI (urinary tract infection) Current Visit: Yes Status: Acute Assessment and plan: UA INDICATIVE OF UTI. CONTINUE IV rocephin Qualifiers: Urinary tract infection type: acute cystitis Qualified Code(s): N30.00 - Acute cystitis without hematuria (7) Suicidal ideation Current Visit: Yes Status: Acute Assessment and plan: Details unclear but patient reportedly would not answer suicide screening questions per seafood specialist assessment. Patient's mother was also at bedside and had reported previous suicidal ideation from patient but no known suicide attempts. Patient denies SI/HI. Cont one-to-one sitter. Psych consult - Time Spent With Patient Total time spent is greater than 50% in coordination of care (as documented) at patient's floor/unit and/or counseling patient: - Subjective Interval history: Seen and examined at bedside. Patient is new to me, information obtained from chart review and patient report. She is awake and alert and very agitated. She is upset with the sitter. I sat bedside multiple times throughout the day reiterating the need to keep the sitter until cleared by psychiatry. She denies SI/HI. - Constitutional Vitals: Temp Pulse Resp BP Pulse Ox 99.3 F 68 14 120/74 99 08/24/17 11:56 08/24/17 11:56 08/24/17 11:56 08/24/17 11:56 08/24/17 11:56 General appearance: Present: A&O X 3 - Head Head exam: Present: atraumatic, normocephalic - Eye Eye exam: Present: PERRL, conjuntiva pink, sclera anicteric Pupils: Present: PERRL - Neck Neck exam general surgery: Present: supple, trachea midline. Absent: lymphadenopathy - Respiratory Respiratory exam: Present: CTAB. Absent: accessory muscle use, rales, rhonchi, wheezes - Cardiovascular Cardiovascular exam: Present: RRR, +S1, +S2. Absent: diastolic murmur, gallop, rubs, systolic murmur - GI/Abdominal GI/Abdominal exam: Present: normal bowel sounds, soft, no peritoneal signs. Absent: distended, tenderness - Extremities Exam Extremities exam: Present: warm, radial pulses palpable and symmetrical. Absent : calf tenderness, cyanotic, pedal edema - Neurological Exam Neurological exam: Present: CN II-XII intact, oriented X3, no focal deficits. Absent: pronater drift, facial droop, speech deficit - Psychiatric Psychiatric exam: Present: agitated, anxious - Skin Skin exam: Present: dry, intact Additional comments: Left shoulder abscess Internal Medicine: Result - Labs CBC & Chem 7: 08/24/17 08:03 08/24/17 08:03 Labs: Short CBC 08/24/17 Range/Units 08:03 WBC 5.1 (4.3-11.1) K/mcL Hgb 8.6 L (11.5-15.4) g/dL Hct 29.8 L (35.3-44.9) % Plt Count 331 (140-400) K/mcL Neutrophils # 2.7 (1.6-8.9) K/mcL BMP 08/24/17 08:03 Sodium 136 Potassium 3.4 L Chloride 106 Carbon Dioxide 22 L BUN 5 L Creatinine 0.66 Glucose 91 Calcium 8.8 Consult Discharge Plan - Plan Referrals: NONE,PCP [Primary Care Provider] -
[2017-08-24 16:59] VITALS: BP 117/73
--- NOTE | 2017-08-24 20:10 | Consult Note ---
Date of Encounter: 08/24/17 Time of Encounter: 19:30 Assessment & Recommendation (1) Moderate manic episode without psychotic symptoms Current visit: Yes Status: Acute (2) Chronic post-traumatic stress disorder Current visit: Yes Status: Chronic (3) Polysubstance abuse Current visit: Yes Status: Acute History of Present Illness Patient: new to practice Requesting Physician: Brett Keenan Reason for consult: r/o depression, r/o SI History of present illness: Ms. Elkins is a 26 year old female This patient was interviewed. She was interviewed alone in the presence of the RN. The chief complaint is I am going to go to integrated services. History of present illness. The patient reports that she was treated at [facility] for problems related to getting of drugs and psychiatric disturbance. The patient says that she was diagnosed with PTSD and also bipolar disorder and that she is on: BuSpar, trazodone, gabapentin, Trileptal and as needed Vistaril. The patient reports that she has panic attacks. She reports that she acts out in her dreams and that she had a violent dream. For the nursing staff this included yelling cussing and seemed to be forgetful at times. The patient is also said she has a history of ADHD. Nonetheless she has said that she is trying to clean up and live a sober lifestyle. That she will contact the [facility] [place] that she will go for needed drug testing. She indicated that she was aware of the possibility of a viable and wished to get help for that. The patient's mental status changes were not apparent at the time of the interview and a head CT was read as normal. I also reviewed it During the interview the patient had some manic signs and symptoms and this is consistent with the prescription of Trileptal. The patient did not evidence any suicidal ideation or suicidal behavior. She was able to identify a plan of care should she relapse into drug abuse or develop psychiatric symptoms that required emergency treatment CC: Brett Keenan Past Med Surg Social Fam HX - Past Medical History Source: patient Medical history: other (ITP) - Past Psychiatric History Psychiatric history: Reports: bipolar, PTSD, previous psychiatric hospitalization Family psychiatric history: Unknown Family History of Suicide: Unknown - Past Surgical History Surgical History: no surgical history - Social History Smoking Status: Current every day smoker Smokeless Tobacco Status: No Alcohol use: rarely Drug use: opiates, marijuana, methamphetamine Occupational status: unemployed Current living situation: Home - Independent Activity Level: Independent ambulation Recent Out of Country Travel Within the Last 8 Weeks: No Exposure or Possible Exposure to Illness During Travel: No Medications & Allergies No Known Home Drugs 08/23/17 [History] 3 Allergy/AdvReac Type Severity Reaction Status Date / Time No Known Allergies Allergy Verified 06/08/17 04:15 Review of Systems Psychiatric: Reports: anxiety, abnormal sleep pattern, mood swings Psychiatry Exam - Constitutional Vitals: Temp Pulse Resp BP Pulse Ox 99.4 F 82 15 117/73 99 08/24/17 16:55 08/24/17 16:55 08/24/17 16:55 08/24/17 16:55 08/24/17 16:55 General appearance: age & developmentally appropriate, well-groomed, well- nourished - Psychiatric Patient Orientation: Yes Person, Yes Time, Yes Place Level of alertness: Alert Behavior: calm, cooperative, impulsive Psychomotor activity: Increased Eye Contact: Maintains Eye Contact Mood Description: Euthymic/stable Affect description: congruent with mood, full range, euphoric Speech Volume: Normal, Loud Speech pattern: normal rate, normal rhythm, normal tone, spontaneous, excessive , pressured Language & Vocabulary: consistent with education Thought Process: Linear, Goal Oriented Thought Content: No Suicidal ideation, No Homicidal ideation, No Overt delusions Perceptual Disturbances: No Auditory hallucinations, No Visual hallucinations Attention Span Ability: Capable of Focused Attention Memory Description: Grossly Intact Patient Reliability: Questionable Historian Fund of knowledge: Yes abstraction ability Intelligence Estimate: Average Judgment: Fair Insight: Partial Results - Labs Labs: Laboratory Last Values WBC 5.1 K/mcL (4.3-11.1) 08/24/17 08:03 RBC 4.34 M/mcL (3.82-4.97) 08/24/17 08:03 Hgb 8.6 g/dL (11.5-15.4) L 08/24/17 08:03 Hct 29.8 % (35.3-44.9) L 08/24/17 08:03 MCV 68.7 fL (83.0-100.0) L 08/24/17 08:03 MCH 19.8 pg (28.0-33.3) L 08/24/17 08:03 MCHC 28.9 g/dL (31.6-35.5) L 08/24/17 08:03 RDW 19.3 % (11.5-14.5) H 08/24/17 08:03 Plt Count 331 K/mcL (140-400) 08/24/17 08:03 MPV 9.4 fL (9.4-12.4) 08/24/17 08:03 Immature Gran % 0.2 % (0-4) 08/24/17 08:03 Seg Neutrophils % 52.5 % 08/24/17 08:03 Lymphocytes % 37.9 % 08/24/17 08:03 Monocytes % 7.4 % 08/24/17 08:03 Eosinophils % 1.8 % 08/24/17 08:03 Basophils % 0.2 % 08/24/17 08:03 Neutrophils # 2.7 K/mcL (1.6-8.9) 08/24/17 08:03 Lymphocytes # 1.9 K/mcL (0.6-4.6) 08/24/17 08:03 Monocytes # 0.4 K/mcL (0.0-1.3) 08/24/17 08:03 Eosinophils # 0.1 K/mcL (0.0-0.6) 08/24/17 08:03 Basophils # 0.0 K/mcL (0.0-0.2) 08/24/17 08:03 Platelet Estimate Normal (Normal) 08/24/17 08:03 Hypochromasia Present (Not Present) A 08/24/17 08:03 Anisocytosis 1+ (Not Present) A 08/24/17 08:03 Microcytosis Present (Not Present) A 08/24/17 08:03 Sodium 136 mEq/L (136-145) 08/24/17 08:03 Potassium 3.4 mEq/L (3.5-5.1) L 08/24/17 08:03 Chloride 106 mEq/L (98-107) 08/24/17 08:03 Carbon Dioxide 22 mEq/L (23-29) L 08/24/17 08:03 BUN 5 mg/dL (6-20) L 08/24/17 08:03 Creatinine 0.66 mg/dL (0.60-1.20) 08/24/17 08:03 Est GFR ( Amer) > 60 (> 60) 08/24/17 08:03 Est GFR (Non-Af Amer) > 60 (> 60) 08/24/17 08:03 BUN/Creatinine Ratio 8 (6-26) 08/24/17 08:03 Glucose 91 mg/dL (70-105) 08/24/17 08:03 Calculated Osmolality 279 (280-300) L 08/24/17 08:03 Lactic Acid 0.5 mmol/L (0.5-2.2) 08/24/17 08:03 Calcium 8.8 mg/dL (8.6-10.3) 08/24/17 08:03 Iron 16 mcg/dL (50-170) L 08/24/17 08:03 % Saturation 3 % (15-50) L 08/24/17 08:03 Transferrin 382 mg/dL (203-362) H 08/24/17 08:03 Ferritin < 8 ng/mL (10-120) L 08/24/17 08:03 Total Bilirubin 0.3 mg/dL (0.3-1.0) 08/23/17 03:20 Direct Bilirubin 0.1 mg/dL (0.0-0.2) 08/23/17 03:20 Indirect Bilirubin 0.2 mg/dL (0.0-1.2) 08/23/17 03:20 AST 32 Units/L (13-39) 08/23/17 03:20 ALT 37 Units/L (7-52) 08/23/17 03:20 Alkaline Phosphatase 73 Units/L (34-104) 08/23/17 03:20 Creatine Kinase 215 Units/L (30-223) 08/23/17 03:20 Troponin I < 0.03 ng/mL (< 0.04) 08/23/17 03:20 Serum Total Protein 7.1 g/dL (6.4-8.9) 08/23/17 03:20 Albumin 4.0 g/dL (3.5-5.7) 08/23/17 03:20 Globulin 3.1 g/dL (2.4-3.5) 08/23/17 03:20 Albumin/Globulin Ratio 1.3 (1.1-2.2) 08/23/17 03:20 Vitamin B12 446 pg/mL (250-1100) 08/24/17 08:03 Folate 11.5 ng/mL (3.0-16.0) 08/24/17 08:03 TSH 2.210 mcIU/mL (0.340-5.600) 08/23/17 03:20 Beta HCG, Quant 627 mIU/mL (Less than 5) H 08/23/17 03:20 Urine Color Yellow (Yellow) 08/23/17 02:25 Urine Clarity Cloudy (Clear) A 08/23/17 02:25 Urine pH 5.5 pH Units (5.0-8.0) 08/23/17 02:25 Ur Specific [place] 1.028 (1.010-1.025) H 08/23/17 02:25 Urine Protein Negative mg/dL (Neg-Trace) 08/23/17 02:25 Urine Glucose (UA) Normal mg/dL (Normal) 08/23/17 02:25 Urine Ketones Negative mg/dL (Negative) 08/23/17 02:25 Urine Blood Negative (Negative) 08/23/17 02:25 Urine Nitrite Positive (Negative) A 08/23/17 02:25 Urine Bilirubin Negative (Negative) 08/23/17 02:25 Urine Urobilinogen Normal mg/dL (Normal) 08/23/17 02:25 Ur Leukocyte Esterase Moderate (Negative) H 08/23/17 02:25 Urine Microscopic RBC 0-3 per hpf (0-3) 08/23/17 02:25 Urine Microscopic WBC 50-100 per hpf (0-3) H 08/23/17 02:25 Ur Squamous Epith Cells Many per lpf (None-Few) H 08/23/17 02:25 Urine Bacteria Many per hpf (None-Few) H 08/23/17 02:25 Hyaline Casts None Seen per lpf (None-Few) 08/23/17 02:25 Urine Mucus Many (Few) H 08/23/17 02:25 Ur Culture Indicated? NO. (NO) A 08/23/17 02:25 Urine Test Positive (Negative) A 08/23/17 02:25 Urine Opiates Screen Positive ng/mL (Gbjnso=536) H 08/23/17 02:25 Ur Barbiturates Screen Negative ng/mL (Aoqarf=500) 06/15/18 02:25 Ur Phencyclidine Scrn Negative ng/mL (Cutoff=25) 08/23/17 02:25 Ur Amphetamines Screen Positive ng/mL (Cfoxap=5474) H 08/23/17 02:25 U Benzodiazepines Scrn Negative ng/mL (Mpzzev=999) 08/23/17 02:25 Urine Cocaine Screen Negative ng/mL (Cutoff= 300) 08/23/17 02:25 U Marijuana (THC) Screen Positive ng/mL (Cutoff = 50) H 08/23/17 02:25 Ethyl Alcohol < 10 mg/dL (Less than 10) 08/23/17 03:20 Blood Type B POSITIVE 08/23/17 03:20 Antibody Screen NEGATIVE 08/23/17 03:20 Consult Discharge Plan - Plan Referrals: NONE,PCP [Primary Care Provider] -
[2017-08-24] MEDS: Acetaminophen 325 MG TABLET PO PRN (20:54)
== END 2017-08-24 23:05 | disposition left against medical advice (07) | DRG 781 ==
LOC: EMEROO 02:08 → 3BNU 02:08
PROVIDERS: ADMIT Family Medicine; ATTEND Family Medicine

== ENCOUNTER → 2018-04-20 01:11 | Observation (INO) ==
[2018-04-19 22:51] LABS: Basophils % 0.3 %; Eosinophils % 0.3 %; Hematocrit 25.6 % (35.3-44.9); Hemoglobin 7.9 g/dL (11.5-15.4); Immature Granulocytes % 4.1 % (0-4); Lymphocytes # 1.7 K/mcL (0.6-4.6); Lymphocytes % 13.9 %; Mean Corpuscular HGB Conc 30.9 g/dL (31.6-35.5); Mean Corpuscular Hemoglobin 21.6 pg (28.0-33.3); Mean Corpuscular Volume 69.9 fL (83.0-100.0); Mean Platelet Volume 9.7 fL (9.4-12.4); Monocytes % 8.1 %; Neutrophils # 8.8 K/mcL (1.6-8.9); Nucleated Red Blood Cells 0.7 /100 WBC (0); Platelet Count 285 K/mcL (140-400); Red Blood Count 3.66 M/mcL (3.82-4.97); Red Cell Distribution Width 18.3 % (11.5-14.5); Segmented Neutrophils % 73.3 %
[2018-04-19 22:57] LABS: Microcytosis Present (Not Present)
--- NOTE | 2018-04-20 01:10 | Discharge Summary ---
Date of Encounter: 04/20/18 Time of Encounter: 01:07 - Discharge Diagnosis (1) 38 weeks gestation of Priority: Primary Status: Acute Comments: Find an OB provider to follow up with Labor parameters discussed Discharge home (2) Abdominal cramping affecting , antepartum Priority: Secondary Status: Acute Comments: Initial exam Patient refused repeat SVE Few contractions on monitor Refused to provide urine specimen for UDS/UA (3) Opioid abuse Priority: Secondary Status: Acute Comments: Reports last use was 3 weeks ago. Currently taking subutex off the street. - Discharge Medications Allergies/Adverse Reactions: Allergy/AdvReac Type Severity Reaction Status Date / Time No Known Allergies Allergy Verified 06/08/17 04:15 Data Procedures and tests throughout hospitalization: Laboratory Tests 04/19/18 04/19/18 22:13 22:40 WBC 12.0 H RBC 3.66 L Hgb 7.9 L Hct 25.6 L MCV 69.9 L MCH 21.6 L MCHC 30.9 L RDW 18.3 H Plt Count 285 MPV 9.7 Immature Gran % 4.1 H Seg Neutrophils % 73.3 Lymphocytes % 13.9 Monocytes % 8.1 Eosinophils % 0.3 Basophils % 0.3 Neutrophils # 8.8 Lymphocytes # 1.7 Monocytes # 1.0 Eosinophils # 0.0 Basophils # 0.0 Nucleated RBCs/100 WBC 0.7 H Microcytosis Present A Specimen Rejected Clotted Labs on day of discharge: Labs from last 24 hours 04/19/18 04/19/18 22:40 22:13 WBC 12.0 H RBC 3.66 L Hgb 7.9 L Hct 25.6 L MCV 69.9 L MCH 21.6 L MCHC 30.9 L RDW 18.3 H Plt Count 285 MPV 9.7 Immature Gran % 4.1 H Seg Neutrophils % 73.3 Lymphocytes % 13.9 Monocytes % 8.1 Eosinophils % 0.3 Basophils % 0.3 Neutrophils # 8.8 Lymphocytes # 1.7 Monocytes # 1.0 Eosinophils # 0.0 Basophils # 0.0 Nucleated RBCs/100 WBC 0.7 H Microcytosis Present A Specimen Rejected Clotted Date of admission: 04/19/18 21:39 Discharging clinician: Dora Sarmiento Anticipated date of discharge: 04/20/18 - Patient Status Disposition: Home, Self-Care Condition: Good Functional capacity at discharge: independent ambulation Overall status at discharge: patient is progressing back to baseline - Discharge Instructions Follow Up With: Warren Lopez MD [Partnered Physician] - - Diet and Activity Activity: increase activity as tolerated Diet: regular diet 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 Upon initial vaginal exam she was found to be 1/70/-2. Further investigation revealed that she is 38 weeks and 3 days gestation. She is a . She does have a history of ITP and is positive for hepatitis C. She is an active drug user although she states her last drug use was 3 weeks ago. She does take Subutex daily which she splits after buying off the street. We repeatedly requested a urine specimen from her and informed her of the need to do a catheter in order to collect urine. She refused both. She was noted to be sleeping upon entry to the room after initial vaginal exam. She was offered a repeat vaginal exam after 2+ hours of monitoring and declined. She was discharged from the unit. Time Attestation: Total time spent providing and/or coordinating discharge services: Time Spent: Less than 30 minutes Exam - Constitutional General appearance IM: A&O X 3 - Respiratory Respiratory exam: Present: CTAB - Cardiovascular Cardiovascular exam IM: Present: RRR, +S1, +S2 - GI/Abdominal GI/Abdominal exam IM: normal bowel sounds, no peritoneal signs - Rectal Rectal exam: deferred - Uterine Tone: Firm - Extremities Exam Extremities exam IM: Present: normal capillary refill, normal inspection, radial pulses palpable and symmetrical - Neurological Exam Neurological exam: alert, CN II-XII intact, normal gait, oriented X3, reflexes normal, no focal deficits, strengths equal and symetr throughout - VTE Reasons for not Prescribing Prophylaxis: Treatment not Indicated - Low risk for VTE
== END | disposition home or self-care (01) ==
LOC: 1NENULAB
PROVIDERS: ADMIT Advanced Practice Midwife; ATTEND Advanced Practice Midwife

== ENCOUNTER 2018-04-29 05:06 | Inpatient (IN) ==
[~2018-04-29 05:06] MED LIST: Famotidine 20 MG/2 ML VIAL IVP PRN; Metoclopramide 10 MG/2 ML VIAL IVP PRN; Naloxone 0.4 MG/ML INJ IVP PRN; Ondansetron 4 MG/2 ML VIAL IVP PRN; Penicillin G Potassium 5,000,000 UNIT in 0.9 % Sodium Chloride Mini Bag 100 ML IVPB ONE; Ringers Solution, Lactated 1,000 ML IVC SCH; miSOPROStol 25 MCG TABLET VG PRN
[2018-04-29 05:40] LABS: Basophils % 0.3 %; Eosinophils # 0.1 K/mcL (0.0-0.6); Hematocrit 28.7 % (35.3-44.9); Hemoglobin 8.4 g/dL (11.5-15.4); Immature Granulocytes % 1.4 % (0-4); Lymphocytes # 1.8 K/mcL (0.6-4.6); Lymphocytes % 18.5 %; Mean Corpuscular HGB Conc 29.3 g/dL (31.6-35.5); Mean Corpuscular Hemoglobin 20.9 pg (28.0-33.3); Mean Corpuscular Volume 71.4 fL (83.0-100.0); Mean Platelet Volume 9.8 fL (9.4-12.4); Monocytes # 0.6 K/mcL (0.0-1.3); Monocytes % 5.9 %; Neutrophils # 7.2 K/mcL (1.6-8.9); Platelet Count 326 K/mcL (140-400); Red Blood Count 4.02 M/mcL (3.82-4.97); Red Cell Distribution Width 18.6 % (11.5-14.5); Segmented Neutrophils % 72.9 %
--- NOTE | 2018-04-29 06:33 | Event Note ---
Date of Encounter: 04/29/18 Time of Encounter: 06:32 Called to room for FHR in the 50's. Upon arrival to room, FHR still in a deceleration. Patient had previously been repositioned, she had an IV fluid bolus running. We repositioned her in hands and knees and the FHR slowly returned to baseline. Dr. Peterson was aware and called to room. At time of her arrival, FHR had returned to baseline.
[2018-04-29 07:07] LABS: Amphetamine Screen,Urine Negative ng/mL (Cutoff=1000); Barbiturate Screen,Urine Negative ng/mL (Cutoff=200)
[2018-04-29 07:08] LABS: Benzodiazepines Screen,Urine Negative ng/mL (Cutoff=300); Cannabinoid Screen,Urine Positive ng/mL (Cutoff = 50); Cocaine Screen,Urine Negative ng/mL (Cutoff= 300); Opiate Screen,Urine Negative ng/mL (Cutoff=300); Phencyclidine Screen,Urine Negative ng/mL (Cutoff=25)
[2018-04-29] MEDS ORDERED: Penicillin G Potassium 2,500,000 UNIT in 0.9 % Sodium Chloride 100 ML IVPB SCH (08:00)
--- NOTE | 2018-04-29 08:11 | Anesthesia Evaluation PreOp ---
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 History: Denies Any Significant HX Other Medical History: Hepatic (hep C), Bleeding (ITP), GERD, Other (bopolar, Depression, PTSD,) Anesthesia History: No Prior Anesthetic Complications : Yes Test: Positive Alcohol Use: none Drug use: methamphetamine, IV Drug Use, other Medications and Allergies Buprenorphine HCl [Subutex] 8 mg SL 04/29/18 [History] Ferrous Sulfate [Iron] 325 mg PO 04/29/18 [History] Allergy/AdvReac Type Severity Reaction Status Date / Time No Known Allergies Allergy Verified 04/29/18 05:00 - Meds/Allergy Pre-op Review Medications Reviewed: Yes Allergies Reviewed: Yes Beta Blockers on Current Med List: No Anesthesia Results - Labs 04/29/18 05:15 Anesthesia Exam 110/78 88 16 fht 147 Height: 5'9" Weight: 172 NPO (# of Hours): 3 Pain Scale: 8 Pain Scale Used: Numeric (1 - 10) - HEENT Pupil (Motor): Pupils equal Mallampati: II Teeth: Normal Oral Opening: Greater than 3 - BELTING CUTTER LOC: Oriented BELTING CUTTER Motor: Normal RUE, Normal LUE, Normal RLE, Normal LLE, Normal Face BELTING CUTTER Sensory: Normal: RUE, LUE, RLE, LLE, Face - Cardiac Rhythm: Regular Murmur: None - Pulmonary Breath Sounds: bilateral Clear Respiratory Effort: Symmetrical Anesthesia Assess/Plan ASA Score: 3 (bipolar, smoker, Hep C,) Level of consciousness: Cooperative Anesthetic Plan: Epidural (risks discussed, questions answered, consented) Monitoring Plan: Standard Monitors Recovery Plan: Other
[2018-04-29] MEDS ORDERED: *HR* Morphine Sulfate/PF 10 MG/10 ML AMPUL ONE (08:25)
[2018-04-29] MEDS ORDERED: *HR* FentaNYL (PF) 100 MCG/2 ML VIAL ONE (08:26)
[2018-04-29] MEDS ORDERED: *HR* Oxytocin 10 UNIT/ML VIAL IM ONE (08:35)
[2018-04-29] MEDS ORDERED: Lidocaine -MPF 2% 5 ML VIAL ONE (08:35)
--- NOTE | 2018-04-29 08:35 | OB/GYN History & Physical ---
Date of Encounter: 04/29/18 Time of Encounter: 08:32 Assessment and Plan (1) 39 weeks gestation of Current visit: Yes Status: Acute 27 y/o 5P2 @40+0 weeks, Elective IOL, Poor social/living situation, ITP, Depression, Bipolar disorder CAT 2 tracing remote from delivery 1cm, Plan: I had a meeting with the patient and her mother regarding her heart tracing. She's had 2 spontaneous decel, the first lasting 5 mins. Given her cervical exam and how remote she is from delivery as well as her poor care, I counseled her that her fetus might have another or more decels that may result in an emergent . I gave her the option of doing a primary c section now as an unscheduled but controlled surgery. She agreed to a c section. Anesthesia contacted. History of Present Illness HPI: Ms. Elkins is a 27 year old female @ 40+0 weeks who presents to L&D for elective IOL. She's had limited care. Her medical history is significant for illicit drug use, Hep C, PTSD, bipolar disorder, ITP, genital herpes and h/o still x 2. [facility] has seen her. No LOF, VB or ctxs. She had some decels when she was being monitored. She is GBS+. She has a poor social and living situation, at one point homeless and another point living in a garage. Past Med Surg Social Fam HX - Past Medical History Medical history: other Additional medical history: Ileus, ITP Psychiatric history: anxiety, bipolar, depression, PTSD, previous psychiatric hospitalization - Past Surgical History Surgical History: no surgical history - Social History Smoking Status: Current every day smoker Packs per day: 1/2 Smokeless Tobacco Status: No Alcohol use: none Drug use: methamphetamine, IV Drug Use, other - Family History Mother Adopted: No Family Member Ethnicity: Non- Living Status: Still Living Hx Family Cardiac Disorders: Yes Hx Family Respiratory Disorders: No Hx Family Cancer: No Hx Family GI Disorders: No Hx Family Endocrine Disorder: No Hx Family Neuromuscular Disorders: No Hx Family Neurologic Disorders: No Hx Family HEENT Disorders: No Hx Family Autoimmune Disorders: No Obstetrical History - Pregnancies : 5 Para: 2 Medications and Allergies Buprenorphine HCl [Subutex] 8 mg SL 04/29/18 [History] Ferrous Sulfate [Iron] 325 mg PO 04/29/18 [History] Allergy/AdvReac Type Severity Reaction Status Date / Time No Known Allergies Allergy Verified 04/29/18 05:00 Review of System OB All systems PM: reviewed and no additional remarkable complaints except as stated Results Result Diagrams: 04/29/18 05:15 Abnormal lab results Hgb 8.4 g/dL (11.5-15.4) L 04/29/18 05:15 Hct 28.7 % (35.3-44.9) L 04/29/18 05:15 MCV 71.4 fL (83.0-100.0) L 04/29/18 05:15 MCH 20.9 pg (28.0-33.3) L 04/29/18 05:15 MCHC 29.3 g/dL (31.6-35.5) L 04/29/18 05:15 RDW 18.6 % (11.5-14.5) H 04/29/18 05:15 U Marijuana (THC) Screen Positive ng/mL (Cutoff = 50) H 04/29/18 05:45 All other labs normal. - VTE Reasons for not Prescribing Prophylaxis: Treatment not Indicated - Low risk for VTE
[2018-04-29] MEDS ORDERED: Ondansetron 4 MG/2 ML VIAL IVP PRN ×2 (09:25→11:56)
[2018-04-29] MEDS ORDERED: *HR* OxyCODONE Immed Rel 5 MG TABLET PO PRN (09:25)
[2018-04-29] MEDS ORDERED: Acetaminophen IV 1,000 MG/100 ML INFUS..BTL IVPB ONE (09:25)
[2018-04-29] MEDS ORDERED: *HR* HYDROmorphone (PF) 1 MG/ML SYRINGE IVP PRN (09:25)
[2018-04-29] MEDS ORDERED: *HR* Meperidine 25 MG/ML SYRINGE IVP PRN (09:25)
--- NOTE | 2018-04-29 09:38 | Anesthesia Procedures ---
Date of Encounter: 04/29/18 Time of Encounter: 09:36 Procedures: Anesthesia - Epidural/Spinal Patient ID/Chart reviewed: Yes Patient examined: Yes OB Eval: Gestational age: 39 OB Eval: : 5 OB Eval: Hx Para: 2 OB Eval: Dilated at (cm): 3 OB Eval: Contractions: Non-stressed pattern Consent Obtained: Yes Supplemental Oxygen: Nasal Cannula Supplemental Oxygen Rate (L/min): 3 Site Prep: Aseptic Technique, Sterile prep and drape, 0.5% Chlorhexidine/Alcohol Patient position: upright Local Anesthetic: Lidocaine 1% Amount of Local Anesthetic used: 3 Interspace Used: L2-L3 Loss of Resistance (LISA): No Blood: No CSF: Yes Paresthesia: No Spinal Needle Gauge: 25 Spinal Dose: marcaine0.5% 2.25cc,Duramorph 0.25 mgfentanyl 10mc Procedure: eptic, vee well ,VSS, effective Vitals + FHT's: 108/78 65 16 FHT 140
--- NOTE | 2018-04-29 09:49 | OB/GYN Procedure Note ---
Section - Date of procedure: 04/29/18 Preop diagnosis: category 2 FHT tracing Post-op diagnosis: same Procedure: section, primary low transverse Surgeon: Warren Pinto Blood Loss: 500 Was there an facility assistant present: Yes Business Systems Lead: Bernadette Rapp Anesthesia Type: Spinal section complications: none Disposition: L&D Recovery Room Specimens: Placenta, Cord segment - Infant (s) A Delivery Date: 04/29/18 Infant Delivery Time: 09:14 Presentation: vertex Gender: Female Gram Weight: 2.97 kg at 1 minute: 9 at 5 minutes: 9 - Narrative Narrative: The patient was brought to the operating room and was given satisfactory spinal anesthesia. The abdomen was prepped and draped in a sterile fashion. A pfannenstiel incision was made and carried sharply down to the level of the fascia. The fascia was incised transversely. The fascia was dissected away from the underlying rectus muscles. With blunt dissection, the rectus muscles were divided in the midline. The peritoneum was entered bluntly. The incision was carried horizontally with scissors. A bladder retractor was placed to protect the bladder. A transverse incision was made across the lower uterine segment after the bladder peritoneum was sharply dissected. The incision was manually extended. Clear amniotic fluid was encountered. The infant's head was pulled up and delivered easily as were the shoulders and body. The mouth and oropharynx were suctioned. The cord was clamped and cut. The was passed off to the waiting nurse in satisfactory condition. The placenta was extracted completely and found to be intact. The uterus was explored and found to be empty. The uterus was delivered through the abdominal incision and massaged vigorously. Intravenous Pitocin was administered. Clamps were placed about the margins of the uterine incision, which was closed primarily with a running locking stitch of 0 Vicryl with adequate hemostasis. Secondary running locking stitch was placed for extra strength to the wound. The uterus was returned to its proper anatomic position in the abdomen. The fascia was closed with a simple running stitch of 0 vicryl. The skin was closed with running subcuticular of 4-0 vicryl. The patient was brought to the recovery room in satisfactory condition.
[2018-04-29] MEDS ORDERED: Metoclopramide 10 MG/2 ML VIAL IVP PRN (11:56)
[2018-04-29] MEDS ORDERED: Ringers Solution, Lactated 1,000 ML IVC SCH (11:56)
[2018-04-29] MEDS ORDERED: Oxytocin 20 units/ LR 1000 mL 20 UNIT/1,000 ML BAG IVC SCH (11:56)
[2018-04-29] MEDS ORDERED: Sennosides 8.6 MG TABLET PO PRN (11:56)
[2018-04-29] MEDS ORDERED: Simethicone 80 MG TAB.CHEW PO PRN (11:56)
[2018-04-29] MEDS ORDERED: Oxytocin 20 units/ LR 1000 mL 20 UNIT/1,000 ML BAG IVC ONE (12:11)
--- NOTE | 2018-04-29 13:22 | Anesthesia Evaluation Post Op ---
Date of Encounter: 04/29/18 Time of Encounter: 13:21 - Vital Signs Vital Signs: Vital Signs/O2 Sat, Most Current Temp Pulse Resp BP Pulse Ox 98.1 F 88 18 116/72 99 04/29/18 13:05 04/29/18 13:05 04/29/18 13:05 04/29/18 13:05 04/29/18 13:05 - Lungs Lungs: Clear Ascult./Percussion - Airway Airway: Non-obstructed - Cardiovascular Regular Rate - Mental Status Mental Status: Alert & Oriented, Answers Appropriately - Pain Pain Scale: 3 Pain Scale used: Numeric (1 - 10) - Nausea Vomiting Nausea Vomiting: Not Present - Hydration Hydration: NPO, Has not voided - Discharge PostOp Status: Transfer Patient to floor (fully awake, VSS, no anesthetic complications)
[2018-04-29] MEDS: Ibuprofen 600 MG TABLET PO PRN ×2 (14:00→21:20)
[2018-04-29] MEDS: *HR* OxyCODONE/APAP 5/325 TABLET PO PRN (18:03)
[2018-04-30] MEDS: *HR* OxyCODONE/APAP 5/325 TABLET PO PRN ×2 (01:40→08:38)
[2018-04-30 07:32] LABS: Basophils % 0.3 %; Eosinophils # 0.1 K/mcL (0.0-0.6); Eosinophils % 0.6 %; Hematocrit 24.7 % (35.3-44.9); Hemoglobin 7.3 g/dL (11.5-15.4); Immature Granulocytes % 1.2 % (0-4); Lymphocytes # 1.8 K/mcL (0.6-4.6); Lymphocytes % 16.1 %; Mean Corpuscular HGB Conc 29.6 g/dL (31.6-35.5); Mean Corpuscular Hemoglobin 21.3 pg (28.0-33.3); Mean Corpuscular Volume 72.2 fL (83.0-100.0); Mean Platelet Volume 10.3 fL (9.4-12.4); Monocytes # 0.7 K/mcL (0.0-1.3); Monocytes % 6.5 %; Neutrophils # 8.2 K/mcL (1.6-8.9); Platelet Count 284 K/mcL (140-400); Red Blood Count 3.42 M/mcL (3.82-4.97); Red Cell Distribution Width 19.3 % (11.5-14.5); Segmented Neutrophils % 75.3 %
[2018-04-30] MEDS: Prenatal Vit/FA 1 EACH TABLET PO SCH (08:38)
--- NOTE | 2018-04-30 09:04 | OB/GYN Progress Note ---
Date of Encounter: 04/30/18 Time of Encounter: 09:31 - Assessment and Plan (1) Status post delivery Current Visit: Yes Status: Acute Continue routine post-op/ care. Tolerating regular diet, pain controlled with current medication. Will write for higher dose of Percocet if needed for severe pain. Voiding without difficulty since mir removed. Consider discharge to guest status tomorrow. (2) anemia Current Visit: Yes Status: Acute Increase iron to bid. Patient is chronic anemic and asymptomatic with hgb of 7.2 (3) Breast feeding status of mother Current Visit: Yes Status: Acute support as needed. Will write for breast pump if patient doesn't have one at home. (4) Chronic hepatitis C affecting antepartum care of mother Current Visit: Yes Status: Acute Follow up as scheduled with PCP (5) Polysubstance abuse Current Visit: No Status: Acute Patient has seen [facility] Open case with CPS at this time. Subjective - Subjective Principal diagnosis: Status post section Interval history: Patient arrived for induction of labor yesterday and category II tracing was noted quickly after induction was initiated. It was decided to proceed with at that time. Date of procedure: 04/29/18 Preop diagnosis: category 2 FHT tracing Post-op diagnosis: same Procedure: section, primary low transverse Surgeon: Warren Pinto Blood Loss: 500 Was there an geriatric assistant present: Yes Doctor Of Podiatric Medicine: Bernadette Rapp Anesthesia Type: Spinal section complications: none Disposition: L&D Recovery Room Specimens: Placenta, Cord segment - Infant (s) Infant A Delivery Date: 04/29/18 Infant Delivery Time: 09:14 Presentation: vertex Gender: Female Gram Weight: 2.97 kg at 1 minute: 9 at 5 minutes: 9 - Narrative Narrative: The patient was brought to the operating room and was given satisfactory spinal anesthesia. The abdomen was prepped and draped in a sterile fashion. A pfannenstiel incision was made and carried sharply down to the level of the fascia. The fascia was incised transversely. The fascia was dissected away from the underlying rectus muscles. With blunt dissection, the rectus muscles were divided in the midline. The peritoneum was entered bluntly. The incision was carried horizontally with scissors. A bladder retractor was placed to protect the bladder. A transverse incision was made across the lower uterine segment after the bladder peritoneum was sharply dissected. The incision was manually extended. Clear amniotic fluid was encountered. The infant's head was pulled up and delivered easily as were the shoulders and body. The mouth and oropharynx were suctioned. The cord was clamped and cut. The infant was passed off to the waiting nurse in satisfactory condition. The placenta was extracted completely and found to be intact. The uterus was explored and found to be empty. The uterus was delivered through the abdominal incision and massaged vigorously. Intravenous Pitocin was administered. Clamps were placed about the margins of the uterine incision, which was closed primarily with a running locking stitch of 0 Vicryl with adequate hemostasis. Secondary running locking stitch was placed for extra strength to the wound. The uterus was returned to its proper anatomic position in the abdomen. The fascia was closed with a simple running stitch of 0 vicryl. The skin was closed with running subcuticular of 4-0 vicryl. The patient was brought to the recovery room in satisfactory condition. Patient reports: appetite normal, ambulating normally [place]: doing well, nursing well Objective - Vital Signs Latest vital signs: Vital Signs Temp Pulse Resp BP Pulse Ox 04/30/18 08:08 98.5 F 73 16 100/65 97 04/30/18 05:40 98.5 F 72 14 101/69 97 04/29/18 23:30 98.4 F 62 14 108/69 99 04/29/18 19:54 98.7 F 75 16 105/65 97 04/29/18 15:30 97.4 F L 77 16 108/67 99 04/29/18 14:30 98.4 F 63 16 100/57 97 04/29/18 13:29 98.2 F 74 16 120/72 98 04/29/18 13:05 98.1 F 88 18 116/72 99 04/29/18 12:30 98.4 F 68 16 101/62 98 Intake and Output 04/29/18 04/30/18 04/30/18 23:59 07:59 15:59 Output Total 1200 / 1200 900 / 900 300 / 300 Balance -1200 / -1200 -900 / -900 -300 / -300 Output: Urine 900 / 900 300 / 300 Catheter 1200 / 1200 Other: Weight 78.9 kg Patient Weight 04/30/18 23:59 Weight 78.9 kg - Exam Lungs: bilateral: normal Chest: Normal S2 Extremities: Present: normal Abdomen: Present: normal appearance, soft Incision: Present: normal, intact Uterus: Present: normal, firm Fundal Height: 0 (@U) - Labs Labs: Laboratory Results - last 24 hr 04/30/18 07:02 WBC 10.9 RBC 3.42 L Hgb 7.3 L Hct 24.7 L MCV 72.2 L MCH 21.3 L MCHC 29.6 L RDW 19.3 H Plt Count 284 MPV 10.3 Immature Gran % 1.2 Seg Neutrophils % 75.3 Lymphocytes % 16.1 Monocytes % 6.5 Eosinophils % 0.6 Basophils % 0.3 Neutrophils # 8.2 Lymphocytes # 1.8 Monocytes # 0.7 Eosinophils # 0.1 Basophils # 0.0 - Allied health notes Allied health notes reviewed: social work
[2018-04-30] MEDS: Ibuprofen 600 MG TABLET PO PRN ×2 (11:05→20:09)
[2018-04-30] MEDS: *HR* OxyCODONE/APAP 10/325 TABLET PO PRN ×2 (16:20→22:36)
[2018-04-30] MEDS ORDERED: Melatonin 3 MG TABLET PO PRN (22:28)
[2018-05-01] MEDS: *HR* OxyCODONE/APAP 10/325 TABLET PO PRN (04:41)
[2018-05-01] MEDS: Ibuprofen 600 MG TABLET PO PRN ×3 (04:42→20:56)
[2018-05-01] MEDS ORDERED: Lanolin 7 G OINT...G. TP PRN (09:50)
[2018-05-01] MEDS: Prenatal Vit/FA 1 EACH TABLET PO SCH (10:05)
--- NOTE | 2018-05-01 15:08 | OB/GYN Progress Note ---
Date of Encounter: 05/01/18 Time of Encounter: 15:06 - Assessment and Plan (1) Breast feeding status of mother Current Visit: Yes Status: Acute (2) anemia Current Visit: Yes Status: Acute (3) Status post delivery Current Visit: Yes Status: Acute Stable postop day #2 Continue current management Continue iron twice daily Anticipate discharge tomorrow Subjective - Subjective Interval history: Patient states feels well, but still having pain. Pain managed on by mouth pain medication, tolerating diet, breast-feeding Patient reports: appetite normal, voiding normally, pain well controlled, ambulating normally [place]: doing well, nursing well Objective - Vital Signs Latest vital signs: Vital Signs Temp Pulse Resp BP Pulse Ox 05/01/18 08:40 14 05/01/18 07:58 98.2 F 70 16 106/66 97 04/30/18 20:10 98.2 F 80 20 116/74 97 Intake and Output 04/30/18 05/01/18 05/01/18 23:59 07:59 15:59 Intake Total 890 / 890 Output Total 750 / 750 Balance -750 / -750 890 / 890 Intake: Oral 890 / 890 Output: Urine 750 / 750 Other: Meal Lunch Percent of Meal Consumed 100% # Bowel Movements 1 - Exam Lungs: bilateral: normal Extremities: Present: normal Abdomen: Present: soft, gravid Incision: Present: intact Uterus: Present: firm (U)
[2018-05-01] MEDS: *HR* OxyCODONE/APAP 5/325 TABLET PO PRN (15:10)
[2018-05-02] MEDS: *HR* OxyCODONE/APAP 10/325 TABLET PO PRN ×2 (00:15→06:24)
[2018-05-02] MEDS: Ibuprofen 600 MG TABLET PO PRN (06:58)
[2018-05-02] MEDS: Prenatal Vit/FA 1 EACH TABLET PO SCH (09:48)
[2018-05-02 11:22] VITALS: BP 115/77
--- NOTE | 2018-05-02 12:11 | OB/GYN Progress Note ---
Date of Encounter: 05/02/18 Time of Encounter: 12:08 - Assessment and Plan (1) Status post delivery Current Visit: Yes Status: Acute Continue routine /postop care Continue with pain control Anticipate discharge home tomorrow POC per consult with Dr Valencia (2) Breast feeding status of mother Current Visit: Yes Status: Acute (3) anemia Current Visit: Yes Status: Acute Subjective - Subjective Principal diagnosis: S/P section Interval history: S/P delivery day 3 Pain not well controlled; patient has history of drug abuse and uses subutex that she purchases off the street when not hospitalized. Denies any additional drug use Lochia light and without clots VSS Tolerating regular diet; passing flatus Voiding without difficulty C/O being tired; states is not sleeping well with frequent interruptions Breast feeding Anticipate discharge home tomorrow via guesting policy POC per consult with Dr Valencia Patient reports: appetite normal, voiding normally, pain poorly controlled (patient requesting medication prior to next dose due; takes subutex that she purchases off the street when not in hospital. Denies any additional drug use), ambulating normally : doing well, nursing well Objective - Vital Signs Latest vital signs: Vital Signs Temp Pulse Resp BP Pulse Ox 05/02/18 11:00 97.4 F L 115/77 05/01/18 21:00 97.6 F 79 16 128/75 99 Intake and Output 05/01/18 05/02/18 05/02/18 23:59 07:59 15:59 Intake Total 700 / 700 600 / 600 Output Total 1400 / 1400 Balance -700 / -700 600 / 600 Intake: Oral 700 / 700 600 / 600 Output: Urine 1400 / 1400 Other: Meal Dinner Percent of Meal Consumed 90% Weight 68.266 kg 71.923 kg Patient Weight 05/02/18 23:59 Weight 71.923 kg - Exam Lungs: bilateral: wheezes (expiratory bilateral bases) Chest: Normal S1, Normal S2 Extremities: Present: normal Abdomen: Present: normal appearance, soft. Absent: gravid, tenderness Incision: Present: normal, dry, intact Uterus: Present: normal, firm. Absent: tenderness Fundal Height: 0 (u/3)
--- NOTE | 2018-05-02 16:42 | Discharge Summary ---
Date of Encounter: 05/02/18 Time of Encounter: 16:36 - Discharge Diagnosis (1) Status post delivery Priority: Primary Status: Acute Comments: Infant being removed by CPS. Patient day 3 post op/ Pain not well controlled; was on subutex in december via Rx. States she has been purchasing off the street. Due to not having a current subutex provider, SW has given patient resources Will DC home with pain control for 5 days. OARRS reviewed and appropriate. (2) Breast feeding status of mother Priority: Secondary Status: Acute (3) anemia Priority: Secondary Status: Acute - Discharge Medications Prescriptions: New Breast Pump [BREAST PUMP] 1 each .ROUTE AD #1 each Ibuprofen [Motrin] 600 mg PO Q6HR PRN #30 tablet PRN Reason: Cramping Docusate [Colace] 100 mg PO BID #30 capsule Ferrous Sulfate 325 mg PO BIDWM #180 tablet OxyCODONE/APAP 5/325 [Percocet 5/325 MG] 1 each PO Q6H PRN 5 Days #20 tablet PRN Reason: Moderate pain 4-6 Simethicone [Gas-X] 80 mg PO TID PRN tab.chew PRN Reason: Dyspepsia Melatonin 3 mg PO HS PRN tablet PRN Reason: Insomnia Discontinued Ferrous Sulfate [Iron] 325 mg PO Buprenorphine HCl [Subutex] 8 mg SL Home Medications: Breast Pump [BREAST PUMP] 1 each .ROUTE AD #1 each 05/02/18 [Rx] Docusate [Colace] 100 mg PO BID #30 capsule 05/02/18 [Rx] Ferrous Sulfate 325 mg PO BIDWM #180 tablet 05/02/18 [Rx] Ibuprofen [Motrin] 600 mg PO Q6HR PRN #30 tablet 05/02/18 [Rx] Melatonin 3 mg PO HS PRN tablet 05/02/18 [Rx] OxyCODONE/APAP 5/325 [Percocet 5/325 MG] 1 each PO Q6H PRN 5 Days #20 tablet 05/02/18 [Rx] Simethicone [Gas-X] 80 mg PO TID PRN tab.chew 05/02/18 [Rx] Allergies/Adverse Reactions: Allergy/AdvReac Type Severity Reaction Status Date / Time No Known Allergies Allergy Verified 04/29/18 05:00 Data Procedures and tests throughout hospitalization: Laboratory Tests 04/29/18 04/29/18 04/30/18 05:15 05:45 07:02 WBC 9.8 10.9 RBC 4.02 3.42 L Hgb 8.4 L 7.3 L Hct 28.7 L 24.7 L MCV 71.4 L 72.2 L MCH 20.9 L 21.3 L MCHC 29.3 L 29.6 L RDW 18.6 H 19.3 H Plt Count 326 284 MPV 9.8 10.3 Immature Gran % 1.4 1.2 Seg Neutrophils % 72.9 75.3 Lymphocytes % 18.5 16.1 Monocytes % 5.9 6.5 Eosinophils % 1.0 0.6 Basophils % 0.3 0.3 Neutrophils # 7.2 8.2 Lymphocytes # 1.8 1.8 Monocytes # 0.6 0.7 Eosinophils # 0.1 0.1 Basophils # 0.0 0.0 Urine Opiates Screen Negative Ur Barbiturates Screen Negative Ur Phencyclidine Scrn Negative Ur Amphetamines Screen Negative U Benzodiazepines Scrn Negative Urine Cocaine Screen Negative U Marijuana (THC) Screen Positive H Ur Drug Screen Interp See Below Date of admission: 04/29/18 05:06 Primary care physician: Sean Portillo MD Discharging clinician: Dora Staley Anticipated date of discharge: 05/02/18 - Patient Status Disposition: Home, Self-Care Condition: Good Functional capacity at discharge: independent ambulation Overall status at discharge: patient is progressing back to baseline - Discharge Instructions Follow Up With: Sean Portillo MD [Primary Care Provider] - Warren Lopez MD [Partnered Physician] - - Diet and Activity Activity: increase activity as tolerated Diet: regular diet Hospital Course Delivery: section Episiotomy: none Laceration: none Other procedures: none Discharge diagnosis: delivery baby: male Time spent discussing smoking cessation with patient: 3 to 10 minutes Time Attestation: Total time spent providing and/or coordinating discharge services: Time Spent: Less than 30 minutes - VTE Reasons for not Prescribing Prophylaxis: Treatment not Indicated - Low risk for VTE Documentation of Mechanical Device: Intermittent pneumatic compression device Exam - Constitutional Vitals: Temp Pulse Resp BP Pulse Ox 97.4 F L 79 16 115/77 99 05/02/18 11:00 05/01/18 21:00 05/01/18 21:00 05/02/18 11:00 05/01/18 21:00 - Other Additional findings: See exam from 04/12/18 am
== END 2018-05-02 17:25 | disposition home or self-care (01) | DRG 788 ==
LOC: 1NENULAB → 1NENUOBS 11:55
PROVIDERS: ADMIT Registered Nurse; ATTEND Registered Nurse

== ENCOUNTER → 2020-01-03 21:36 | Observation (INO) ==
[~2020-01-03 21:36] MED LIST changes: -Famotidine 20 MG/2 ML VIAL IVP PRN; -Metoclopramide 10 MG/2 ML VIAL IVP PRN; -Naloxone 0.4 MG/ML INJ IVP PRN; +Ondansetron ODT 4 MG TAB.RAPDIS SL ONE; -Penicillin G Potassium 5,000,000 UNIT in 0.9 % Sodium Chloride Mini Bag 100 ML IVPB ONE; +Ringers Solution, Lactated 1,000 ML IVC ONE; +Ringers Solution, Lactated 1,000 ML ONE; -miSOPROStol 25 MCG TABLET VG PRN
== END | disposition left against medical advice (07) ==
LOC: 1NENULAB
PROVIDERS: ADMIT Obstetrics & Gynecology; ATTEND Obstetrics & Gynecology